=== PATIENT | male | born 1960 | race Caucasian/White ===

== ENCOUNTER 2016-11-27 23:51 | Inpatient (IN) | payer MEDICAID ==
[2016-11-28] MEDS ORDERED: Sodium Chloride 0.9% 1,000 ML IV STA (00:17)
[2016-11-28] MEDS ORDERED: Ondansetron 4 MG/2 ML SDV IVPUSH ONE (00:17)
[2016-11-28] MEDS ORDERED: Sodium Chloride 0.9% 10 ML Syringe FLUSH PRN (00:17)
[2016-11-28] MEDS ORDERED: HYDROmorphone 1 MG/ML Syringe IVPUSH ONE ×2 (00:19→00:59)
--- NOTE | 2016-11-28 01:45 | EDM.PDOC ---
ED HPI GENERAL MEDICAL PROBLEM - General Chief Complaint: Abdominal Pain Stated Complaint: ABDOMINAL PAIN Time Seen by Provider: 11/28/16 00:12 Source of Information: Reports: Patient, Family History Limitations: Reports: No Limitations - History of Present Illness INITIAL COMMENTS - FREE TEXT/NARRATIVE: The patient presents with generalized abdominal pain. He has a history of bladder cancer and neobladder. He also has had an incarcerated hernia with repair. He has nausea but no vomiting or diarrhea. He denies fever, chills, cough, chest pain or shortness of breath. This started yesterday afternoon when he got back from [facility]. He went to bed but could not sleep. He has a history of small bowel obstruction but it did not need surgery. Onset: Gradual Duration: Day(s): (Yesterday afternoon) Location: Reports: Abdomen Quality: Reports: Sharp Severity: Moderate Improves with: Reports: None Worsens with: Reports: None Associated Symptoms: Reports: Nausea/Vomiting. Denies: Chest Pain, Cough, Fever /Chills, Headaches, Shortness of Breath Abdomen Pain Score (Numeric/FACES): 10 - Related Data Allergies Allergy/AdvReac Type Severity Reaction Status Date / Time No Known Allergies Allergy Verified 11/28/16 00:01 Home Meds: Home Meds Aspirin [Ecotrin] 81 mg PO DAILY 11/25/15 [History] Bisoprolol Fumarate [Zebeta] 5 mg PO DAILY 11/25/15 [History] FLUoxetine [PROzac] 20 mg PO DAILY 11/25/15 [History] Gabapentin [Neurontin] 1,200 mg PO BID 11/25/15 [History] Nitroglycerin 1 tab PO ASDIRECTED PRN 11/25/15 [History] Rivaroxaban [Xarelto] 20 mg PO DAILY 11/25/15 [History] oxyCODONE HCl/Acetaminophen [oxyCODONE-Acetaminophen 5-325] 1 tab PO Q4H PRN 04/03 [History] Gabapentin [Neurontin] 300 mg PO DAILY #180 cap 11/26/15 [Rx] oxyCODONE HCl/Acetaminophen [Percocet 5-325 mg Tablet] 1 - 2 each PO Q4H PRN # 40 tablet 11/26/15 [Rx] Past Medical History 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 Cardiovascular History: Reports: High Cholesterol, Hypertension, [place], Other (See Below) Other Cardiovascular History: Stents Other Genitourinary History: ureteral stent placement, bladder removed., and has jason bladder in place Musculoskeletal History: Reports: Fracture Other Musculoskeletal History: Hammer toe fixed Neurological History: Reports: Neuropathy, Peripheral Endocrine/Metabolic History: Reports: Diabetes, Type II Hematologic History: Reports: Blood Transfusion(s) Oncologic (Cancer) History: Reports: Bladder - Past Surgical History HEENT Surgical History: Reports: Myringotomy w Tube(s) Cardiovascular Surgical History: Reports: Carotid Endarterectomy GI Surgical History: Reports: Hernia Repair/Other Male Surgical History: Reports: Prostatectomy Social & Family History - Tobacco Use Smoking Status *Q: Never Smoker Second Hand Smoke Exposure: No - Recreational Drug Use Recreational Drug Use: No ED ROS GENERAL - Review of Systems Review Of Systems: See Below Constitutional: Reports: No Symptoms HEENT: Reports: No Symptoms Respiratory: Reports: No Symptoms Cardiovascular: Reports: No Symptoms Endocrine: Reports: No Symptoms GI/Abdominal: Reports: Abdominal Pain, Nausea. Denies: Diarrhea, Vomiting : Reports: No Symptoms Musculoskeletal: Reports: No Symptoms ED EXAM, GI/ABD - Physical Exam Exam: See Below Exam Limited By: No Limitations General Appearance: Alert, No Apparent Distress Ears: Normal External Exam Nose: Normal Inspection Throat/Mouth: Normal Inspection Head: Atraumatic, Normocephalic Neck: Normal Inspection Respiratory/Chest: No Respiratory Distress, Lungs Clear, Normal Breath Sounds Cardiovascular: Regular Rate, Rhythm, No Edema, No Murmur GI/Abdominal: Soft, Tenderness (mild generalized tenderness. Large ventral scar ) Course - Vital Signs Last Recorded V/S: Last Vital Signs Temp 98.1 F 11/28/16 00:01 Pulse 71 11/28/16 00:01 Resp 17 11/28/16 00:01 BP 206/116 H 11/28/16 00:01 Pulse Ox 95 11/28/16 00:01 - Orders/Labs/Meds Orders: Active Orders 24 hr Category Date Time Status Peripheral IV Care [RC] . DIRECTED Care 11/28/16 00:17 Active Abdomen Pelvis wo Cont [CT] Stat Exams 11/28/16 00:17 Taken Sodium Chloride 0.9% [Normal Saline] 1,000 ml Med 11/28/16 02:00 Active IV ASDIRECTED Sodium Chloride 0.9% [Saline Flush] Med 11/28/16 00:17 Active 10 ml FLUSH ASDIRECTED PRN ED Antiemetic Medication Reflex [OM.PC] Stat Oth 11/28/16 00:18 Ordered Peripheral IV Insertion Adult [OM.PC] Stat Oth 11/28/16 00:17 Ordered Medication Orders Sodium Chloride (Normal Saline) 1,000 mls @ 150 mls/hr IV ASDIRECTED AUSTEN Last Admin: 11/28/16 01:56 Dose: 150 mls/hr Sodium Chloride (Saline Flush) 10 ml FLUSH ASDIRECTED PRN PRN Reason: Keep Vein Open Last Admin: 11/28/16 00:39 Dose: 10 ml Labs: Laboratory Tests 11/28/16 11/28/16 11/28/16 Range/Units 00:29 00:29 00:50 WBC 7.94 (4.23-9.07) K/mm3 RBC 5.30 (4.63-6.08) M/mm3 Hgb 15.2 (13.7-17.5) gm/L Hct 45.7 (40.1-51.0) % MCV 86.2 (79.0-92.2) fl MCH 28.7 (25.7-32.2) pg MCHC 33.3 (32.2-35.5) g/dl RDW Std Deviation 41.6 (35.1-43.9) fL Plt Count 189 (163-337) K/mm3 MPV 9.1 L (9.4-12.3) fl Neut % (Auto) 66.4 (34.0-67.9) % Lymph % (Auto) 24.2 (21.8-53.1) % Iron % (Auto) 7.6 (5.3-12.2) % Eos % (Auto) 1.4 (0.8-7.0) Baso % (Auto) 0.3 (0.1-1.2) % Neut # (Auto) 5.28 (1.78-5.38) K/mm3 Lymph # (Auto) 1.92 (1.32-3.57) K/mm3 Iron # (Auto) 0.60 (0.30-0.82) K/mm3 Eos # (Auto) 0.11 (0.04-0.54) K/mm3 Baso # (Auto) 0.02 (0.01-0.08) K/mm3 Sodium 143 (136-145) mEq/L Potassium 4.4 (3.5-5.1) mEq/L Chloride 105 (98-107) mEq/L Carbon Dioxide 27 (21-32) mEq/L Anion Gap 15.4 H (5-15) BUN 31 H (7-18) mg/dL Creatinine 1.8 H (0.7-1.3) mg/dL Est Cr Clr Drug Dosing 49.70 mL/min Estimated GFR (MDRD) 39 (>60) mL/min BUN/Creatinine Ratio 17.2 (14-18) Glucose 124 H (74-106) mg/dL Calcium 9.4 (8.5-10.1) mg/dL Total Bilirubin 0.5 (0.2-1.0) mg/dL AST 30 (15-37) U/L ALT 69 H (16-63) U/L Alkaline Phosphatase 91 (46-116) U/L Total Protein 7.9 (6.4-8.2) g/dl Albumin 4.0 (3.4-5.0) g/dl Globulin 3.9 gm/dL Albumin/Globulin Ratio 1.0 (1-2) Lipase 155 (73-393) U/L Urine Color Yellow (Yellow) Urine Appearance Cloudy H (Clear) Urine pH 6.0 (5.0-8.0) Ur Specific Stow 1.025 (1.005-1.030) Urine Protein 2+ H (Negative) Urine Glucose (UA) Negative (Negative) Urine Ketones Negative (Negative) Urine Occult Blood 1+ H (Negative) Urine Nitrite Negative (Negative) Urine Bilirubin Negative (Negative) Urine Urobilinogen 0.2 (0.2-1.0) Ur Leukocyte Esterase Negative (Negative) Urine RBC 5-10 H (0-5) /hpf Urine WBC 10-20 H (0-5) /hpf Ur Epithelial Cells Not seen (0-5) /hpf Amorphous Sediment Few H (NOT SEEN) /hpf Urine Bacteria Few (FEW) /hpf Urine Mucus Few (FEW) /hpf Meds: Medications Generic Name Dose Route Start Last Admin Trade Name Freq PRN Reason Stop Dose Admin Sodium Chloride 1,000 mls @ 150 mls/hr 11/28/16 02:00 11/28/16 01:56 Normal Saline IV 150 mls/hr ASDIRECTED AUSTEN Administration Sodium Chloride 10 ml 11/28/16 00:17 11/28/16 00:39 Saline Flush FLUSH 10 ml ASDIRECTED PRN Administration Keep Vein Open Discontinued Medications Generic Name Dose Route Start Last Admin Trade Name Valentinoq PRN Reason Stop Dose Admin Fentanyl 100 mcg 11/28/16 01:50 11/28/16 01:56 Sublimaze IVPUSH 11/28/16 01:51 100 mcg ONETIME ONE Administration Hydromorphone HCl 1 mg 11/28/16 00:19 11/28/16 00:41 Dilaudid IVPUSH 11/28/16 00:20 1 mg ONETIME ONE Administration Hydromorphone HCl 1 mg 11/28/16 00:59 11/28/16 01:04 Dilaudid IVPUSH 11/28/16 01:00 1 mg ONETIME ONE Administration Sodium Chloride 1,000 mls @ 1,000 mls/hr 11/28/16 00:17 11/28/16 00:38 Normal Saline IV 11/28/16 01:16 1,000 mls/hr .BOLUS STA Administration Ondansetron HCl 4 mg 11/28/16 00:17 11/28/16 00:39 Zofran IVPUSH 11/28/16 00:18 4 mg ONETIME ONE Administration - Re-Assessments/Exams Free Text/Narrative Re-Assessment/Exam: 11/28/16 01:44 I ordered an IV NS 1L bolus, zofran 4mg IV, dilaudid 1mg IV, labs, UA, and CT of his abdomen and pelvis. He says he has bad kidneys and he does not want IV contrast and he does not think he can tolerate the oral contrast. 11/28/16 02:54 His CBC is negative. His creatinine is elevated at 1.8. His UA shows no UTI. He had more pain so I gave him dilaudid and some fentanyl. His CT shows chronic moderate right hydroureteronephrosis, stable compared to the prior study with associated right renal cortical thinning. Status post neobladder formation. Findings consistent with small bowel obstruction. He is having pain again. I have ordered some fentanyl 50mcg IV. I feel he needs to be admitted. I called Dr Merchant and she agreed to the admission. Departure - Departure Time of Disposition: 03:05 Disposition: Admitted As Inpatient 65 Condition: fair Clinical Impression: Small bowel obstruction - Discharge Information Forms: ED Department Discharge - My Orders Last 24 Hours: My Active Orders 11/28/16 00:17 Peripheral IV Care [RC] . DIRECTED Abdomen Pelvis wo Cont [CT] Stat Sodium Chloride 0.9% [Saline Flush] 10 ml FLUSH ASDIRECTED PRN Peripheral IV Insertion Adult [OM.PC] Stat 11/28/16 00:18 ED Antiemetic Medication Reflex [OM.PC] Stat 11/28/16 02:00 Sodium Chloride 0.9% [Normal Saline] 1,000 ml IV ASDIRECTED - Assessment/Plan Last 24 Hours: My Active Orders 11/28/16 00:17 Peripheral IV Care [RC] . DIRECTED Abdomen Pelvis wo Cont [CT] Stat Sodium Chloride 0.9% [Saline Flush] 10 ml FLUSH ASDIRECTED PRN Peripheral IV Insertion Adult [OM.PC] Stat 11/28/16 00:18 ED Antiemetic Medication Reflex [OM.PC] Stat 11/28/16 02:00 Sodium Chloride 0.9% [Normal Saline] 1,000 ml IV ASDIRECTED
[2016-11-28] MEDS ORDERED: fentaNYL 100 MCG/2 ML SDV IVPUSH ONE ×2 (01:50→03:01)
[2016-11-28] MEDS ORDERED: Sodium Chloride 0.9% 1,000 ML IV SCH (02:00)
[2016-11-28] MEDS ORDERED: Ondansetron 4 MG/2 ML SDV IVPUSH PRN (04:24)
[2016-11-28] MEDS: fentaNYL 100 MCG/2 ML SDV IVPUSH PRN ×2 (04:42→07:57)
--- NOTE | 2016-11-28 06:56 | PCM.CONS ---
H&P History of Present Illness - General Date of Service: 11/28/16 Admit Problem/Dx: Admission Diagnosis/Problem Admission Diagnosis/Problem Small bowel obstruction Source of Information: Patient History Limitations: Reports: No Limitations - History of Present Illness Initial Comments - Free Text/Narative: 56-year-old, white male was admitted for a small bowel obstruction. About 5 years ago he underwent a radical cystectomy for bladder cancer, and was given a neobladder. This procedure was associated with a ventral hernia with incarceration that was managed by open reduction and mesh repair. About 5 months ago, while in [place], he presented to a hospital there with severe crampy abdominal pain. The discharge diagnosis was partial small bowel obstruction that resolved with medical management. He states this current admission for crampy abdominal pain is similar, but much better than the abdominal discomfort he had several months ago. He has waves of cramps. During a wave the pain intensity can be 10 over 10. This morning during my visit with him he has 0/10 abdominal pain. He has no nausea. He has not had emesis. On the other hand, he has not passed gas or had a bowel movement. Of note, was that he does not have a nasogastric tube in place because the patient refused it. He stated that during his radical cystectomy the post op nasogastric tube was extremely painful. The [place] admission for partial small bowel obstruction was managed without nasogastric tube suction, and he wants to be managed here in a similar fashion. Abdomen Pain Score (Numeric/FACES): 10 - Related Data Allergies/Adverse Reactions: Allergies Allergy/AdvReac Type Severity Reaction Status Date / Time No Known Allergies Allergy Verified 11/28/16 00:01 Home Medications: Home Meds Aspirin [Ecotrin] 81 mg PO ACBREAKFAST 11/25/15 [History] Bisoprolol Fumarate [Zebeta] 5 mg PO ACBREAKFAST 11/25/15 [History] Gabapentin [Neurontin] 1,800 mg PO ACBREAKFAST 11/25/15 [History] Rivaroxaban [Xarelto] 20 mg PO BEDTIME 11/25/15 [History] oxyCODONE HCl/Acetaminophen [oxyCODONE-Acetaminophen 5-325] 1 tab PO Q4H PRN 04/03 [History] Celebrex 11/28/16 [History] Gabapentin [Neurontin] 1,200 mg PO BEDTIME 11/28/16 [History] Glipizide 11/28/16 [History] LORazepam 1 mg PO BID PRN 11/28/16 [History] Past Medical History HEENT History: Reports: Other (See Below) 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, 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 Cardiovascular History: Reports: Afib, Blood Clots/VTE/DVT, CAD, High Cholesterol, Hypertension, [place], Stents, Other (See Below) Other Cardiovascular History: Stents Gastrointestinal History: Reports: Bowel Obstruction, GERD Genitourinary History: Reports: Urinary Incontinence Other Genitourinary History: ureteral stent placement, bladder removed., and has jason bladder in place Musculoskeletal History: Reports: Fracture Other Musculoskeletal History: Hammer toe fixed Neurological History: Reports: Neuropathy, Peripheral Psychiatric History: Reports: Anxiety Endocrine/Metabolic History: Reports: Diabetes, Type II Hematologic History: Reports: Blood Transfusion(s) Oncologic (Cancer) History: Reports: Bladder - Past Surgical History HEENT Surgical History: Reports: Myringotomy w Tube(s) Cardiovascular Surgical History: Reports: Carotid Endarterectomy, Carotid Stents Male Surgical History: Reports: Prostatectomy Endocrine Surgical History: Reports: None Oncologic Surgical History: Reports: None Social & Family History - Tobacco Use Smoking Status *Q: Never Smoker Second Hand Smoke Exposure: No - Recreational Drug Use Recreational Drug Use: No H&P Review of Systems - Review of Systems: Review Of Systems: ROS reveals no pertinent complaints other than HPI. Exam - Exam Exam: See Below - Vital Signs Vital Signs: Last Vital Signs Temp 36.7 C 11/28/16 00:01 Pulse 71 11/28/16 00:01 Resp 17 11/28/16 00:01 BP 206/116 H 11/28/16 00:01 Pulse Ox 95 11/28/16 00:01 Weight: 117.934 kg - Exam General: Alert, Oriented, Cooperative HEENT: EOMI, Hearing Intact Neck: Supple, Trachea Midline Lungs: Clear to Auscultation, Normal Respiratory Effort Cardiovascular: Regular Rate, Regular Rhythm, Normal S1, Normal S2 Abdomen: Normal Bowel Sounds, Soft, Distention (mild, no recurrent hernia) (Male) Exam: Deferred Rectal (Males) Exam: Deferred Back Exam: Normal Inspection Skin: Warm, Dry, Intact Psychiatric: Alert, Normal Affect, Normal Mood - Patient Data Result Diagrams: 11/28/16 00:29 11/28/16 00:29 Consult PN Assessment/Plan Procedures: Procedures ASSAY OF AMYLASE (01/23/15) BLOOD CULTURE FOR BACTERIA (01/23/15) COMPLETE CBC W/AUTO DIFF WBC (11/25/15) COMPREHEN METABOLIC PANEL (11/25/15) CT ABD & PELV W/CONTRAST (01/23/15) CT ABD & PELVIS W/O CONTRAST (11/25/15) EMERGENCY DEPT VISIT (11/25/15) HYDRATE IV INFUSION ADD-ON (11/25/15) ROUTINE VENIPUNCTURE (11/25/15) THER/PROPH/DIAG INJ IV PUSH (11/25/15) THER/PROPH/DIAG IV INF ADDON (01/23/15) THER/PROPH/DIAG IV INF INIT (01/23/15) TX/PRO/DX INJ NEW DRUG ADDON (01/23/15) TX/PRO/DX INJ SAME DRUG CAFE MANAGER (11/25/15) URINALYSIS AUTO W/O SCOPE (12/25/14) URINALYSIS AUTO W/SCOPE (11/25/15) URINE CULTURE/COLONY COUNT (01/23/15) (1) Small bowel obstruction SNOMED Code(s): 153186345 Code(s): K56.69 - OTHER INTESTINAL OBSTRUCTION Priority: Medium Current Visit: Yes Problem List Initiated/Reviewed/Updated: Yes Plan: Imp: Clinically this is a partial small bowel obstruction. Etiology is most likely due to adhesions, but an internal hernia given his previous neobladder surgery which would require mobilization of the small bowel mesentery, as well as the possibility of recurrent bladder cancer are possible too. CT scan shows some dilated loops of small bowel with air-fluid levels, as well as stool and gas in the right colon, and rectum. The neobladder is seen as well. This patient is afebrile. His white blood cell count is normal. He has a nonfocal abdominal exam. I suspect that this partial obstruction will resolve with conservative medical management. Ideally, a nasogastric tube would be in place but because of patient refusal his care will be compromised. Nevertheless, I suspect she will have a similar course as he had in [place]. For severe refractory nausea and emesis he may come to agree to tube decompression. Rec: NPO with IV hydration. Antibiotics are not indicated at this time. Ambulation. We will wait for return of bowel function. I will see him tomorrow.
[2016-11-28] MEDS ORDERED: HYDROmorphone 1 MG/ML Syringe IVPUSH PRN (08:14)
[2016-11-28] MEDS: Sodium Chloride 0.9% 1,000 ML IV SCH ×3 (08:30→19:30)
--- NOTE | 2016-11-28 08:51 | PCM.HP ---
H&P History of Present Illness - General Date of Service: 11/28/16 Admit Problem/Dx: Admission Diagnosis/Problem Admission Diagnosis/Problem Small bowel obstruction Source of Information: Patient, Family, Provider - History of Present Illness Initial Comments - Free Text/Narative: 56 year old male with history of bladder cancer, s/p neobladder after a radiacl cystectomy presents with abdominal pain. He has a partial SBO, he has had a similar presentation several years ago. He unfortunately had a difficult experience with an NGT and on admission refused it. However, he has agreed to have an NGT placed after a discussion of the benefit for his condition. Associated symptoms include nausea and vomiting. Onset of Symptoms: Reports: Gradual Duration of Symptoms: Reports: Hour(s): Location: Reports: Abdomen Quality: Reports: Sharp, Other (crampy) Severity: Severe Improves with: Reports: Medication Associated Symptoms: Reports: Nausea/Vomiting Abdomen Pain Score (Numeric/FACES): 10 - Related Data Allergies/Adverse Reactions: Allergies Allergy/AdvReac Type Severity Reaction Status Date / Time No Known Allergies Allergy Verified 11/28/16 00:01 Home Medications: Home Meds Bisoprolol Fumarate [Zebeta] 5 mg PO ACBREAKFAST 11/25/15 [History] Rivaroxaban [Xarelto] 20 mg PO BEDTIME 11/25/15 [History] oxyCODONE HCl/Acetaminophen [oxyCODONE-Acetaminophen 5-325] 1 tab PO Q4H PRN 04/03 [History] DULoxetine HCl [Cymbalta] 30 mg PO BEDTIME 11/28/16 [History] Gabapentin [Neurontin] 600 mg PO TID 11/28/16 [History] LORazepam 1 mg PO BID PRN 11/28/16 [History] glipiZIDE [Glipizide ER] 5 mg PO DAILY 11/28/16 [History] Past Medical History HEENT History: Reports: Other (See Below) 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, 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 Cardiovascular History: Reports: Afib, Blood Clots/VTE/DVT, CAD, High Cholesterol, Hypertension, [place], Stents, Other (See Below) Other Cardiovascular History: Stents Gastrointestinal History: Reports: Bowel Obstruction, GERD Genitourinary History: Reports: Urinary Incontinence Other Genitourinary History: ureteral stent placement, bladder removed., and has jason bladder in place Musculoskeletal History: Reports: Fracture Other Musculoskeletal History: Hammer toe fixed Neurological History: Reports: Neuropathy, Peripheral Psychiatric History: Reports: Anxiety Endocrine/Metabolic History: Reports: Diabetes, Type II Hematologic History: Reports: Blood Transfusion(s) Oncologic (Cancer) History: Reports: Bladder - Past Surgical History HEENT Surgical History: Reports: Myringotomy w Tube(s) Cardiovascular Surgical History: Reports: Carotid Endarterectomy, Carotid Stents Male Surgical History: Reports: Prostatectomy Endocrine Surgical History: Reports: None Oncologic Surgical History: Reports: None Social & Family History - Tobacco Use Smoking Status *Q: Never Smoker Used Tobacco, but Quit: Yes Month Tobacco Last Used: 2012 Second Hand Smoke Exposure: No - Caffeine Use Caffeine Use: Reports: Coffee - Recreational Drug Use Recreational Drug Use: No H&P Review of Systems - Review of Systems: Review Of Systems: See Below General: Reports: Decreased Appetite HEENT: Reports: No Symptoms Pulmonary: Reports: No Symptoms Cardiovascular: Reports: No Symptoms Gastrointestinal: Reports: Abdominal Pain, Nausea, Vomiting Genitourinary: Reports: No Symptoms Musculoskeletal: Reports: No Symptoms Skin: Reports: No Symptoms Psychiatric: Reports: No Symptoms Neurological: Reports: No Symptoms Hematologic/Lymphatic: Reports: No Symptoms Immunologic: Reports: No Symptoms Exam - Exam Exam: See Below - Vital Signs Vital Signs: Last Vital Signs Temp 36.8 C 11/28/16 05:00 Pulse 55 L 11/28/16 05:00 Resp 12 11/28/16 05:00 BP 162/74 H 11/28/16 05:00 Pulse Ox 98 11/28/16 05:00 Weight: 117.934 kg - Exam HEENT: EOMI, Nares Patent, Normal Nasal Septum, Pupils Equal, Pupils Reactive Neck: Supple, Trachea Midline Lungs: Normal Respiratory Effort Cardiovascular: Regular Rate, Tachycardia Abdomen: Normal Bowel Sounds (Male) Exam: Deferred Rectal (Males) Exam: Deferred Back Exam: Normal Inspection Extremities: Normal Pulses Skin: Warm Neurological: Cranial Nerves Intact, Normal Speech Neuro Extensive - Mental Status: Alert, Oriented x3 Neuro Extensive - Motor, Sensory, Reflexes: CN II-XII Intact Psychiatric: Alert, Anxious - Patient Data Result Diagrams: 11/28/16 00:29 11/28/16 00:29 *Q Meaningful Use (ADM) - VTE *Q VTE Criteria *Q: - Stroke *Q Stroke Criteria *Q: - AMI *Q AMI Criteria *Q: - Problem List (1) Small bowel obstruction SNOMED Code(s): 289321823 ICD Code: K56.69 - OTHER INTESTINAL OBSTRUCTION Status: Acute Priority: Medium Current Visit: Yes (2) Neurogenic pain SNOMED Code(s): 953723662 ICD Code: M79.2 - NEURALGIA AND NEURITIS, UNSPECIFIED Status: Acute Current Visit: No Problem List Initiated/Reviewed/Updated: Yes Orders Last 24hrs: Active Orders 24 hr Category Date Time Status Activity as Tolerated [RC] QSHIFT Care 11/28/16 04:23 Active Consult to Physician [CONS] Urgent Cons 11/28/16 03:08 Active NPO Now [Nothing per Oral Now Diet] [DIET] Diet 11/28/16 Breakfast Active HYDROmorphone [Dilaudid] Med 11/28/16 08:14 Active 1 mg IVPUSH Q1H PRN Ondansetron [Zofran] Med 11/28/16 04:24 Active 4 mg IVPUSH Q6H PRN Sodium Chloride 0.9% [Normal Saline] 1,000 ml Med 11/28/16 04:30 Active IV ASDIRECTED fentaNYL [Sublimaze] Med 11/28/16 04:25 Active 50 mcg IVPUSH Q1H PRN Code Status [Resuscitation Status] Routine Resus Stat 11/28/16 04:22 Ordered Medication Orders Fentanyl (Sublimaze) 50 mcg IVPUSH Q1H PRN PRN Reason: Pain Last Admin: 11/28/16 07:57 Dose: 50 mcg Admin: 11/28/16 04:42 Dose: 50 mcg Hydromorphone HCl (Dilaudid) 1 mg IVPUSH Q1H PRN PRN Reason: Abdominal Pain Last Admin: 11/28/16 08:45 Dose: 1 mg Sodium Chloride (Normal Saline) 1,000 mls @ 150 mls/hr IV ASDIRECTED AUSTEN Last Admin: 11/28/16 08:30 Dose: 150 mls/hr Ondansetron HCl (Zofran) 4 mg IVPUSH Q6H PRN PRN Reason: Nausea/Vomiting Sodium Chloride (Saline Flush) 10 ml FLUSH ASDIRECTED PRN PRN Reason: Keep Vein Open Last Admin: 05/13/17 00:39 Dose: 10 ml Assessment/Plan Comment:: Impression: SBO, refused NGT, but will allow placement now Previous partial SBO without surgery. History of extensive abdominal surgeries History of bladder cancer S/P neobladder; ureteral stent Chronic Diabetes mellitus PVD with CEA/LYNDA CAD/SC HTN Hyperlipidemia Plan: Gen surg input is appreciated NGT at 60 with low intermittent suction Pain mgt Hold Xarelto, may need surgery, start lovenox 120 mg BID Oxygen, keep O2 sat > 92%/CXR Home meds via NGT Scheduled IV meds Pre-medicate before NGT DVT/GI prophylaxis
[2016-11-28] MEDS ORDERED: fentaNYL 100 MCG/2 ML SDV IVPUSH PRN (09:54)
[2016-11-28] MEDS ORDERED: 50% Dextrose in Water 50 ML Syringe IVPUSH PRN (09:59)
[2016-11-28] MEDS: Haloperidol Lactate 5 MG/ML SDV IVPUSH SCH ×2 (10:30→15:08)
[2016-11-28] MEDS ORDERED: Benzocaine 20% Oral Spray 59.2 ML Canister MUCMEM ONE (11:33)
[2016-11-28] MEDS ORDERED: Lidocaine 2% Viscous Solution 15 ML Cup PO ONE (11:35)
[2016-11-28] MEDS: HYDROmorphone 1 MG/ML Syringe IVPUSH PRN ×3 (12:04→19:32)
--- NOTE | 2016-11-28 12:48 | CR ---
Chest: Frontal view of the chest was obtained as well as an additional AP view centered to the diaphragmatic region. Comparison: No previous chest x-ray is available. Findings: Nasogastric tube is seen. Tip lies below the gastroesophageal junction within the proximal stomach. Heart size has a slight left ventricular configuration. Lungs appear to be clear. Bony structures are grossly intact. Impression: 1. Position of nasogastric tube as described above. 2. Other incidental findings. Diagnostic code #2
[2016-11-28] MEDS: Insulin Aspart 100 Units/ML 3 ML Pen SUBCUT SCH ×2 (12:57→17:47)
[2016-11-28] MEDS: Pantoprazole 40 MG Vial IVPUSH SCH (15:41)
[2016-11-28] MEDS: DULoxetine 30 MG Cap PO SCH (23:00)
[2016-11-28] MEDS: Gabapentin 600 MG Tab PO SCH (23:00)
[2016-11-29] MEDS: Sodium Chloride 0.9% 1,000 ML IV SCH ×4 (00:24→15:24)
[2016-11-29] MEDS: HYDROmorphone 1 MG/ML Syringe IVPUSH PRN ×6 (00:25→23:45)
[2016-11-29] MEDS: Insulin Aspart 100 Units/ML 3 ML Pen SUBCUT SCH ×5 (02:01→21:44)
[2016-11-29] MEDS: Pantoprazole 40 MG Vial IVPUSH SCH ×3 (03:42→14:22)
--- NOTE | 2016-11-29 07:55 | PCM.CONSN ---
- General Info Date of Service: 11/29/16 Functional Status: Reports: pain controlled, urinating - Review of Systems Gastrointestinal: Reports: No symptoms, Flatus Neurological: Reports: Paresthesia (Feet) - Patient Data Vitals - most recent: Last Vital Signs Temp 36.6 C 11/28/16 21:00 Pulse 62 11/28/16 21:00 Resp 12 11/28/16 21:00 BP 142/78 H 11/28/16 21:00 Pulse Ox 98 11/28/16 21:00 Weight - most recent: 117.934 kg I&O - last 24 hours: Intake & Output 11/28/16 11/29/16 11/29/16 22:59 06:59 14:59 Intake Total 1936 Output Total 500 150 Balance 1436 -150 Lab Results last 24 hrs: Laboratory Results - last 24 hr 11/28/16 11/28/16 11/29/16 Range/Units 12:35 16:58 00:37 POC Glucose 102 96 118 H (70-105) mg/dL 11/29/16 Range/Units 06:02 POC Glucose 95 (70-105) mg/dL Med Orders - Current: Current Medications Dextrose/Water (Dextrose 50% In Water) 50 ml IVPUSH ASDIRECTED PRN PRN Reason: Hypoglycemia Diazepam (Valium) 2 mg IVPUSH Q8H PRN PRN Reason: Anxiety Duloxetine HCl (Cymbalta) 30 mg PO BEDTIME [facility] Last Admin: 11/28/16 23:00 Dose: Not Given Enoxaparin Sodium (Lovenox) 120 mg SUBCUT Q12HR [facility] Fentanyl (Sublimaze) 50 mcg IVPUSH Q2HR PRN PRN Reason: Pain Gabapentin (Neurontin) 600 mg PO TID [facility] Last Admin: 11/28/16 23:00 Dose: Not Given Hydromorphone HCl (Dilaudid) 2 mg IVPUSH Q1H PRN PRN Reason: Abdominal Pain Last Admin: 11/29/16 05:12 Dose: 2 mg Sodium Chloride (Normal Saline) 1,000 mls @ 200 mls/hr IV ASDIRECTED [facility] Last Admin: 11/29/16 05:13 Dose: 200 mls/hr Insulin Aspart (Novolog) 0 unit SUBCUT QIDACANDBED [facility] PRN Reason: Protocol Last Admin: 11/29/16 06:51 Dose: Not Given Ondansetron HCl (Zofran) 4 mg IVPUSH Q6H PRN PRN Reason: Nausea/Vomiting Oxycodone/Acetaminophen (Percocet 325-5 Mg) 1 tab PO Q4H PRN PRN Reason: Pain Pantoprazole Sodium (Protonix Iv) 40 mg IVPUSH Q12H [facility] Last Admin: 11/29/16 03:42 Dose: 40 mg Sodium Chloride (Saline Flush) 10 ml FLUSH ASDIRECTED PRN PRN Reason: Keep Vein Open Last Admin: 11/28/16 00:39 Dose: 10 ml Discontinued Medications Benzocaine (Hurricaine 20% [place]) 1 ml MUCMEM ONETIME ONE Stop: 11/28/16 11:34 Last Admin: 11/28/16 12:00 Dose: 1 dose Diazepam (Valium) 2 mg IVPUSH ONETIME ONE Stop: 11/28/16 09:57 Last Admin: 11/28/16 10:29 Dose: 2 mg Fentanyl (Sublimaze) 100 mcg IVPUSH ONETIME ONE Stop: 11/28/16 01:51 Last Admin: 11/28/16 01:56 Dose: 100 mcg Fentanyl (Sublimaze) 50 mcg IVPUSH ONETIME ONE Stop: 11/28/16 03:02 Last Admin: 11/28/16 03:11 Dose: 50 mcg Fentanyl (Sublimaze) 50 mcg IVPUSH Q1H PRN PRN Reason: Pain Last Admin: 11/28/16 07:57 Dose: 50 mcg Haloperidol Lactate (Haldol) 1 mg IVPUSH Q6H [facility] Last Admin: 11/28/16 15:08 Dose: Not Given Hydromorphone HCl (Dilaudid) 1 mg IVPUSH ONETIME ONE Stop: 11/28/16 00:20 Last Admin: 11/28/16 00:41 Dose: 1 mg Hydromorphone HCl (Dilaudid) 1 mg IVPUSH ONETIME ONE Stop: 11/28/16 01:00 Last Admin: 11/28/16 01:04 Dose: 1 mg Hydromorphone HCl (Dilaudid) 1 mg IVPUSH Q1H PRN PRN Reason: Abdominal Pain Last Admin: 11/28/16 08:45 Dose: 1 mg Sodium Chloride (Normal Saline) 1,000 mls @ 1,000 mls/hr IV .BOLUS STA Stop: 11/28/16 01:16 Last Admin: 11/28/16 00:38 Dose: 1,000 mls/hr Sodium Chloride (Normal Saline) 1,000 mls @ 150 mls/hr IV ASDIRECTED [facility] Last Admin: 11/28/16 01:56 Dose: 150 mls/hr Lidocaine HCl (Xylocaine 2% Viscous) 15 ml PO ONETIME ONE Stop: 11/28/16 11:36 Last Admin: 11/28/16 12:00 Dose: 15 ml Ondansetron HCl (Zofran) 4 mg IVPUSH ONETIME ONE Stop: 11/28/16 00:18 Last Admin: 11/28/16 00:39 Dose: 4 mg - Exam General: alert, oriented Abdomen: soft, no tenderness, no distension Consult PN Assessment/Plan Procedures: Procedures ASSAY OF AMYLASE (01/23/15) BLOOD CULTURE FOR BACTERIA (01/23/15) COMPLETE CBC W/AUTO DIFF WBC (11/25/15) COMPREHEN METABOLIC PANEL (11/25/15) CT ABD & PELV W/CONTRAST (01/23/15) CT ABD & PELVIS W/O CONTRAST (11/25/15) EMERGENCY DEPT VISIT (11/25/15) HYDRATE IV INFUSION ADD-ON (11/25/15) ROUTINE VENIPUNCTURE (11/25/15) THER/PROPH/DIAG INJ IV PUSH (11/25/15) THER/PROPH/DIAG IV INF ADDON (01/23/15) THER/PROPH/DIAG IV INF INIT (01/23/15) TX/PRO/DX INJ NEW DRUG ADDON (01/23/15) TX/PRO/DX INJ SAME DRUG PAINTER INTERIOR FINISH (11/25/15) URINALYSIS AUTO W/O SCOPE (12/25/14) URINALYSIS AUTO W/SCOPE (11/25/15) URINE CULTURE/COLONY COUNT (01/23/15) (1) Small bowel obstruction SNOMED Code(s): 820324744 Code(s): K56.69 - OTHER INTESTINAL OBSTRUCTION Priority: Medium Current Visit: Yes Problem List Initiated/Reviewed/Updated: Yes Plan: Imp: Resolving partial small bowel obstruction. This patient has passed gas since yesterday. He has no abdominal pain. This morning. His physical exam shows no abdominal tenderness. A nasogastric tube was successfully placed and has put out approximately 500 cc. He has improved and I suggest we try weaning from the nasogastric tube, with clamping and residual checks for 24 hours. Plan: Clamping NG tube for 24 hours.
[2016-11-29] MEDS: Enoxaparin 120 MG/0.8 ML Syringe SUBCUT SCH ×2 (09:01→20:23)
[2016-11-29] MEDS: Gabapentin 600 MG Tab PO SCH ×4 (09:03→20:23)
--- NOTE | 2016-11-29 10:35 | CT ---
CT abdomen and pelvis Technique: Multiple axial sections were obtained from above the dome of the diaphragm inferiorly through the pubic symphysis. Intravenous and oral contrast not utilized. Study has been performed as a ureteral stone protocol. Previous study: CT abdomen and pelvis exam of 11/26/15. Findings: Small scar noted within the left lung base. Diffuse fatty infiltration seen within the liver. This is an interval change from previous study. Spleen appears within normal limits. Adrenal glands show no nodule. Pancreas is within normal limits. Noncontrast appearance of the gallbladder shows no calcified gallstones. Right sided hydronephrosis is seen with cortical thinning seen within the right kidney. Dilated right ureter into the pelvis is seen. Distal ureter not visualized. Hydronephrosis likely representing ureteral stricture. This finding is stable from prior exam. Left kidney shows no hydronephrosis or ureteral dilatation. Abnormal appearing bladder is seen and felt to represent previous surgery creating a neobladder. Dilated proximal small bowel loops are seen. There is a small abdominal wall hernia seen which is felt to be the etiology for the mild dilated proximal small bowel loops. Small amount of fluid is seen next to this hernia. Diffuse anterior abdominal galicia scarring is seen from previous abdominal wall surgery. Aorta shows atherosclerotic change which continues in the iliac vessels. No retroperitoneal adenopathy or mesenteric abnormalities are seen. No pelvic mass or adenopathy is seen. Diffuse degenerative change is seen within the spine. Impression: 1. Proximal small bowel obstruction caused by a small abdominal wall hernia. 2. Right-sided hydronephrosis and dilated ureter felt compatible with distal right ureteral stricture. This causes cortical thinning of the right kidney. These findings are stable from prior CT exam. 3. Other incidental findings as described above. Diagnostic code #3 I agree with preliminary report issued by [employer] (preliminary report dictated on 11/28/16, 3:43 AM Central Time
--- NOTE | 2016-11-29 11:02 | PCM.PN ---
- General Info Date of Service: 11/29/16 Functional Status: Reports: pain controlled, ambulating, urinating - Review of Systems General: Reports: No Symptoms HEENT: Reports: sore throat Pulmonary: Reports: no symptoms Cardiovascular: Reports: No Symptoms Gastrointestinal: Reports: Abdominal pain (decreased), Flatus Genitourinary: Reports: no symptoms Musculoskeletal: Reports: no symptoms Skin: Reports: no symptoms Neurological: Reports: Numbness (feet) Psychiatric: Reports: no symptoms - Patient Data Vitals - most recent: Last Vital Signs Temp 36.8 C 11/29/16 08:22 Pulse 77 11/29/16 08:22 Resp 12 11/29/16 08:22 BP 165/85 H 11/29/16 08:22 Pulse Ox 84 L 11/29/16 09:55 Weight - most recent: 117.934 kg I&O - last 24 hours: Intake & Output 11/28/16 11/29/16 11/29/16 22:59 06:59 14:59 Intake Total 1936 2305 Output Total 500 2400 Balance 1436 -95 Lab Results last 24 hrs: Laboratory Results - last 24 hr 11/28/16 11/28/16 11/29/16 Range/Units 12:35 16:58 00:37 POC Glucose 102 96 118 H (70-105) mg/dL 11/29/16 11/29/16 Range/Units 06:02 10:30 POC Glucose 95 94 (70-105) mg/dL Med Orders - Current: Current Medications Dextrose/Water (Dextrose 50% In Water) 50 ml IVPUSH ASDIRECTED PRN PRN Reason: Hypoglycemia Diazepam (Valium) 2 mg IVPUSH Q8H PRN PRN Reason: Anxiety Duloxetine HCl (Cymbalta) 30 mg PO BEDTIME [facility] Last Admin: 11/28/16 23:00 Dose: Not Given Enoxaparin Sodium (Lovenox) 120 mg SUBCUT Q12HR [facility] Last Admin: 11/29/16 09:01 Dose: 120 mg Fentanyl (Sublimaze) 50 mcg IVPUSH Q2HR PRN PRN Reason: Pain Gabapentin (Neurontin) 600 mg PO TID [facility] Last Admin: 11/29/16 09:03 Dose: Not Given Hydromorphone HCl (Dilaudid) 2 mg IVPUSH Q1H PRN PRN Reason: Abdominal Pain Last Admin: 11/29/16 09:01 Dose: 2 mg Sodium Chloride (Normal Saline) 1,000 mls @ 200 mls/hr IV ASDIRECTED [facility] Last Admin: 11/29/16 10:28 Dose: 200 mls/hr Insulin Aspart (Novolog) 0 unit SUBCUT QIDACANDBED [facility] PRN Reason: Protocol Last Admin: 11/29/16 10:57 Dose: Not Given Ondansetron HCl (Zofran) 4 mg IVPUSH Q6H PRN PRN Reason: Nausea/Vomiting Oxycodone/Acetaminophen (Percocet 325-5 Mg) 1 tab PO Q4H PRN PRN Reason: Pain Pantoprazole Sodium (Protonix Iv) 40 mg IVPUSH Q12H [facility] Last Admin: 11/29/16 03:42 Dose: 40 mg Sodium Chloride (Saline Flush) 10 ml FLUSH ASDIRECTED PRN PRN Reason: Keep Vein Open Last Admin: 11/28/16 00:39 Dose: 10 ml Discontinued Medications Benzocaine (Hurricaine 20% [place]) 1 ml MUCMEM ONETIME ONE Stop: 11/28/16 11:34 Last Admin: 11/28/16 12:00 Dose: 1 dose Diazepam (Valium) 2 mg IVPUSH ONETIME ONE Stop: 11/28/16 09:57 Last Admin: 11/28/16 10:29 Dose: 2 mg Fentanyl (Sublimaze) 100 mcg IVPUSH ONETIME ONE Stop: 11/28/16 01:51 Last Admin: 11/28/16 01:56 Dose: 100 mcg Fentanyl (Sublimaze) 50 mcg IVPUSH ONETIME ONE Stop: 11/28/16 03:02 Last Admin: 11/28/16 03:11 Dose: 50 mcg Fentanyl (Sublimaze) 50 mcg IVPUSH Q1H PRN PRN Reason: Pain Last Admin: 11/28/16 07:57 Dose: 50 mcg Haloperidol Lactate (Haldol) 1 mg IVPUSH Q6H [facility] Last Admin: 11/28/16 15:08 Dose: Not Given Hydromorphone HCl (Dilaudid) 1 mg IVPUSH ONETIME ONE Stop: 11/28/16 00:20 Last Admin: 11/28/16 00:41 Dose: 1 mg Hydromorphone HCl (Dilaudid) 1 mg IVPUSH ONETIME ONE Stop: 11/28/16 01:00 Last Admin: 11/28/16 01:04 Dose: 1 mg Hydromorphone HCl (Dilaudid) 1 mg IVPUSH Q1H PRN PRN Reason: Abdominal Pain Last Admin: 11/28/16 08:45 Dose: 1 mg Sodium Chloride (Normal Saline) 1,000 mls @ 1,000 mls/hr IV .BOLUS STA Stop: 11/28/16 01:16 Last Admin: 11/28/16 00:38 Dose: 1,000 mls/hr Sodium Chloride (Normal Saline) 1,000 mls @ 150 mls/hr IV ASDIRECTED [facility] Last Admin: 11/28/16 01:56 Dose: 150 mls/hr Lidocaine HCl (Xylocaine 2% Viscous) 15 ml PO ONETIME ONE Stop: 11/28/16 11:36 Last Admin: 11/28/16 12:00 Dose: 15 ml Ondansetron HCl (Zofran) 4 mg IVPUSH ONETIME ONE Stop: 11/28/16 00:18 Last Admin: 11/28/16 00:39 Dose: 4 mg - Exam Quality Assessment: DVT prophylaxis General: alert, oriented, cooperative, no acute distress HEENT: Pupils equal, Pupils reactive, EOMI Neck: supple, trachea midline, no JVD Lungs: Clear to auscultation Cardiovascular: Regular Rate, Regular Rhythm Abdomen: bowel sounds present, soft, no tenderness, no distension (Male) Exam: Deferred Back Exam: Normal Inspection Extremities: normal pulses Skin: warm Neurological: normal gait, normal speech Psy/Mental Status: alert - Problem List & Annotations (1) Small bowel obstruction SNOMED Code(s): 148072056 Code(s): K56.69 - OTHER INTESTINAL OBSTRUCTION Status: Acute Priority: Medium Current Visit: Yes (2) Neurogenic pain SNOMED Code(s): 329694013 Code(s): M79.2 - NEURALGIA AND NEURITIS, UNSPECIFIED Status: Acute Current Visit: No - Problem List Review Problem List Initiated/Reviewed/Updated: Yes - My Orders Last 24 Hours: My Active Orders 11/28/16 10:08 Consult to Physician [CONS] Routine 11/28/16 10:11 Notify Provider Consults [RC] ASDIRECTED 11/28/16 11:00 Insulin Aspart [NovoLOG] See Protocol SUBCUT QIDACANDBED 11/28/16 11:44 Oxygen Therapy Adult [Oxygen Therapy] [RC] ASDIRECTED 11/28/16 13:38 Gastrointestinal Tube Mgmt [RC] 04,10,16,22 Nasogastric Orogastric Tube Insertion [OM.PC] Routine 11/28/16 14:34 Diazepam [Valium] 2 mg IVPUSH Q8H PRN 11/28/16 15:00 Pantoprazole [ProTONIX IV] 40 mg IVPUSH Q12H 11/28/16 15:37 Acetaminophen/oxyCODONE [Percocet 325-5 MG] 1 tab PO Q4H PRN 11/28/16 21:00 DULoxetine [Cymbalta] 30 mg PO BEDTIME Gabapentin [Neurontin] 600 mg PO TID 11/29/16 09:00 Enoxaparin [Lovenox] 120 mg SUBCUT Q12HR 11/30/16 07:00 CBC W/O DIFF,HEMOGRAM [HEME] MOTH@0700 12/03/16 07:00 CBC W/O DIFF,HEMOGRAM [HEME] MOTH@0700 12/07/16 07:00 CBC W/O DIFF,HEMOGRAM [HEME] MOTH@0700 12/10/16 07:00 CBC W/O DIFF,HEMOGRAM [HEME] MOTH@0700 12/14/16 07:00 CBC W/O DIFF,HEMOGRAM [HEME] MOTH@0700 12/17/16 07:00 CBC W/O DIFF,HEMOGRAM [HEME] MOTH@0700 - Plan Plan:: Impression: SBO, decreased out put, NGT clamped today Will give oral meds via BGT Previous partial SBO without surgery. History of extensive abdominal surgeries History of bladder cancer S/P neobladder; ureteral stent Chronic Diabetes mellitus PVD with CEA/LYNDA CAD/MD HTN Hyperlipidemia Plan: Gen surg input is appreciated NGT clamped today. Pain mgt Hold Xarelto, may need surgery, start lovenox 120 mg BID Oxygen, keep O2 sat > 92%/CXR Home meds via NGT Scheduled IV meds DVT/GI prophylaxis
[2016-11-29] MEDS: Acetaminophen/oxyCODONE 325-5 MG Tab PO PRN (18:09)
[2016-11-29] MEDS: Dextrose 5%-0.9% NaCl 1,000 ML IV SCH (20:05)
[2016-11-29] MEDS: DULoxetine 30 MG Cap PO SCH (20:23)
[2016-11-30] MEDS: HYDROmorphone 1 MG/ML Syringe IVPUSH PRN (04:09)
[2016-11-30] MEDS: Pantoprazole 40 MG Vial IVPUSH SCH (04:23)
--- NOTE | 2016-11-30 07:50 | PCM.CONSN ---
- General Info Date of Service: 11/30/16 Functional Status: Reports: pain controlled, ambulating, urinating - Review of Systems Gastrointestinal: Reports: Flatus - Patient Data Vitals - most recent: Last Vital Signs Temp 36.7 C 11/29/16 19:59 Pulse 70 11/29/16 19:59 Resp 15 11/29/16 19:59 BP 148/78 H 11/29/16 20:42 Pulse Ox 99 11/29/16 19:59 Weight - most recent: 119.612 kg I&O - last 24 hours: Intake & Output 11/29/16 11/30/16 11/30/16 22:59 06:59 14:59 Intake Total 2436 Output Total 1775 Balance 661 Lab Results last 24 hrs: Laboratory Results - last 24 hr 11/29/16 11/29/16 11/29/16 Range/Units 10:30 16:27 20:58 WBC (4.23-9.07) K/mm3 RBC (4.63-6.08) M/mm3 Hgb (13.7-17.5) gm/L Hct (40.1-51.0) % MCV (79.0-92.2) fl MCH (25.7-32.2) pg MCHC (32.2-35.5) g/dl RDW Std Deviation (35.1-43.9) fL Plt Count (163-337) K/mm3 MPV (9.4-12.3) fl POC Glucose 94 84 89 (70-105) mg/dL 11/30/16 Range/Units 06:50 WBC 5.84 (4.23-9.07) K/mm3 RBC 4.54 L (4.63-6.08) M/mm3 Hgb 13.0 L (13.7-17.5) gm/L Hct 40.7 (40.1-51.0) % MCV 89.6 (79.0-92.2) fl MCH 28.6 (25.7-32.2) pg MCHC 31.9 L (32.2-35.5) g/dl RDW Std Deviation 42.4 (35.1-43.9) fL Plt Count 144 L (163-337) K/mm3 MPV 9.1 L (9.4-12.3) fl POC Glucose (70-105) mg/dL Med Orders - Current: Current Medications Dextrose/Water (Dextrose 50% In Water) 50 ml IVPUSH ASDIRECTED PRN PRN Reason: Hypoglycemia Diazepam (Valium) 2 mg IVPUSH Q8H PRN PRN Reason: Anxiety Last Admin: 11/29/16 14:45 Dose: 2 mg Duloxetine HCl (Cymbalta) 30 mg PO BEDTIME [facility] Last Admin: 11/29/16 20:23 Dose: 30 mg Enoxaparin Sodium (Lovenox) 120 mg SUBCUT Q12HR [facility] Last Admin: 11/29/16 20:23 Dose: 120 mg Fentanyl (Sublimaze) 50 mcg IVPUSH Q2HR PRN PRN Reason: Pain Gabapentin (Neurontin) 600 mg PO TID [facility] Last Admin: 11/29/16 20:23 Dose: 600 mg Hydromorphone HCl (Dilaudid) 2 mg IVPUSH Q1H PRN PRN Reason: Abdominal Pain Last Admin: 11/30/16 04:09 Dose: 2 mg Dextrose/Sodium Chloride (Dextrose 5%-Normal Saline) 1,000 mls @ 70 mls/hr IV ASDIRECTED [facility] Last Admin: 11/29/16 20:05 Dose: 70 mls/hr Insulin Aspart (Novolog) 0 unit SUBCUT QIDACANDBED [facility] PRN Reason: Protocol Last Admin: 11/29/16 21:44 Dose: Not Given Ondansetron HCl (Zofran) 4 mg IVPUSH Q6H PRN PRN Reason: Nausea/Vomiting Oxycodone/Acetaminophen (Percocet 325-5 Mg) 1 tab PO Q4H PRN PRN Reason: Pain Last Admin: 11/29/16 18:09 Dose: 1 tab Pantoprazole Sodium (Protonix Iv) 40 mg IVPUSH Q12H [facility] Last Admin: 11/30/16 04:23 Dose: 40 mg Sodium Chloride (Saline Flush) 10 ml FLUSH ASDIRECTED PRN PRN Reason: Keep Vein Open Last Admin: 11/28/16 00:39 Dose: 10 ml Discontinued Medications Benzocaine (Hurricaine 20% [place]) 1 ml MUCMEM ONETIME ONE Stop: 11/28/16 11:34 Last Admin: 11/28/16 12:00 Dose: 1 dose Diazepam (Valium) 2 mg IVPUSH ONETIME ONE Stop: 11/28/16 09:57 Last Admin: 11/28/16 10:29 Dose: 2 mg Fentanyl (Sublimaze) 100 mcg IVPUSH ONETIME ONE Stop: 11/28/16 01:51 Last Admin: 11/28/16 01:56 Dose: 100 mcg Fentanyl (Sublimaze) 50 mcg IVPUSH ONETIME ONE Stop: 11/28/16 03:02 Last Admin: 11/28/16 03:11 Dose: 50 mcg Fentanyl (Sublimaze) 50 mcg IVPUSH Q1H PRN PRN Reason: Pain Last Admin: 11/28/16 07:57 Dose: 50 mcg Haloperidol Lactate (Haldol) 1 mg IVPUSH Q6H [facility] Last Admin: 11/28/16 15:08 Dose: Not Given Hydromorphone HCl (Dilaudid) 1 mg IVPUSH ONETIME ONE Stop: 11/28/16 00:20 Last Admin: 11/28/16 00:41 Dose: 1 mg Hydromorphone HCl (Dilaudid) 1 mg IVPUSH ONETIME ONE Stop: 11/28/16 01:00 Last Admin: 11/28/16 01:04 Dose: 1 mg Hydromorphone HCl (Dilaudid) 1 mg IVPUSH Q1H PRN PRN Reason: Abdominal Pain Last Admin: 11/28/16 08:45 Dose: 1 mg Sodium Chloride (Normal Saline) 1,000 mls @ 1,000 mls/hr IV .BOLUS STA Stop: 11/28/16 01:16 Last Admin: 11/28/16 00:38 Dose: 1,000 mls/hr Sodium Chloride (Normal Saline) 1,000 mls @ 150 mls/hr IV ASDIRECTED [facility] Last Admin: 11/28/16 01:56 Dose: 150 mls/hr Sodium Chloride (Normal Saline) 1,000 mls @ 200 mls/hr IV ASDIRECTED [facility] Last Admin: 11/29/16 15:24 Dose: 200 mls/hr Lidocaine HCl (Xylocaine 2% Viscous) 15 ml PO ONETIME ONE Stop: 11/28/16 11:36 Last Admin: 11/28/16 12:00 Dose: 15 ml Ondansetron HCl (Zofran) 4 mg IVPUSH ONETIME ONE Stop: 11/28/16 00:18 Last Admin: 11/28/16 00:39 Dose: 4 mg - Exam Abdomen: soft, no tenderness, no distension Consult PN Assessment/Plan Procedures: Procedures ASSAY OF AMYLASE (01/23/15) BLOOD CULTURE FOR BACTERIA (01/23/15) COMPLETE CBC W/AUTO DIFF WBC (11/25/15) COMPREHEN METABOLIC PANEL (11/25/15) CT ABD & PELV W/CONTRAST (01/23/15) CT ABD & PELVIS W/O CONTRAST (11/25/15) EMERGENCY DEPT VISIT (11/25/15) HYDRATE IV INFUSION ADD-ON (11/25/15) ROUTINE VENIPUNCTURE (11/25/15) THER/PROPH/DIAG INJ IV PUSH (11/25/15) THER/PROPH/DIAG IV INF ADDON (01/23/15) THER/PROPH/DIAG IV INF INIT (01/23/15) TX/PRO/DX INJ NEW DRUG ADDON (01/23/15) TX/PRO/DX INJ SAME DRUG ASSET [employer]OTECTION OFFICER (11/25/15) URINALYSIS AUTO W/O SCOPE (12/25/14) URINALYSIS AUTO W/SCOPE (11/25/15) URINE CULTURE/COLONY COUNT (01/23/15) (1) Small bowel obstruction SNOMED Code(s): 219219023 Code(s): K56.69 - OTHER INTESTINAL OBSTRUCTION Priority: Medium Current Visit: Yes Problem List Initiated/Reviewed/Updated: Yes My Orders last 24 hours: Imp: Almost no residuals with NGT clamping challenge for 24 hours. NGT can be discontinued but will wait for hospitalist input. Rec: D/C NGT follwed by lynsey.
[2016-11-30] MEDS: Insulin Aspart 100 Units/ML 3 ML Pen SUBCUT SCH ×4 (08:18→21:03)
[2016-11-30] MEDS ORDERED: Benzocaine/Cetylpyridinium/Menthol Lozenge MUCMEM PRN (08:22)
[2016-11-30] MEDS: Gabapentin 600 MG Tab PO SCH (08:35)
[2016-11-30] MEDS: Acetaminophen/oxyCODONE 325-5 MG Tab PO PRN ×3 (08:35→22:17)
[2016-11-30] MEDS: Enoxaparin 120 MG/0.8 ML Syringe SUBCUT SCH ×2 (08:36→20:23)
[2016-11-30] MEDS: Dextrose 5%-0.9% NaCl 1,000 ML IV SCH (10:43)
[2016-11-30] MEDS ORDERED: Bisacodyl 10 MG Supp RECTAL ONE (10:58)
[2016-11-30] MEDS ORDERED: Gabapentin 600 MG Tab PO ONE (11:00)
[2016-11-30] MEDS ORDERED: Magnesium Sulfate/Water 2 GM in Premix Bag 1 BAG IV ONE ×2 (12:58→19:13)
[2016-11-30] MEDS ORDERED: Simethicone 80 MG Tab.Chew PO PRN (13:01)
--- NOTE | 2016-11-30 13:11 | PCM.PN ---
Addendum entered and electronically signed by Brianna Hung PA-C 13:26: Started Levaquin IV for presumed UTI; UC ordered and pending. Original Note: <Brianna Hung - Last Filed: 11/30/16 13:20> - General Info Date of Service: 11/30/16 Admission Dx/Problem (Free Text): Admission Diagnosis/Problem Admission Diagnosis/Problem Small bowel obstruction Den is seen this morning; sleep as had just gotten pain medication. States pain is improved to his abdomen, he is passing gas, no BM yet. NG has been removed and he is more comfortable now. Will start clear liquid diet. Has c/o pain to his legs "nerve pain" and requesting dose of gabapentin be increased to his usual home dose. No other complaints/concerns voiced by patient or significant other this am. Functional Status: Reports: pain controlled, ambulating, urinating. Denies: tolerating diet (has been NPO) - Review of Systems General: Reports: No Symptoms. Denies: Fever HEENT: Reports: no symptoms Pulmonary: Reports: no symptoms. Denies: shortness of breath, cough Cardiovascular: Reports: No Symptoms. Denies: Chest Pain, Palpitations, Dyspnea on Exertion Gastrointestinal: Reports: Abdominal pain (much improved), Flatus. Denies: Diarrhea, Hematochezia, Melena, Nausea, Vomiting Genitourinary: Reports: no symptoms Neurological: Reports: No Symptoms Psychiatric: Reports: other (anxiety and hx of PTSD is reported) - Patient Data Vitals - most recent: Last Vital Signs Temp 98.4 F 11/30/16 08:15 Pulse 83 11/30/16 08:15 Resp 16 11/30/16 08:15 BP 159/83 H 11/30/16 08:15 Pulse Ox 90 L 11/30/16 08:15 Weight - most recent: 119.612 kg I&O - last 24 hours: Intake & Output 11/29/16 11/30/16 11/30/16 22:59 06:59 14:59 Intake Total 6583 746 Output Total 8659 1950 Balance 661 -1204 Lab Results last 24 hrs: Laboratory Results - last 24 hr 11/29/16 11/29/16 11/30/16 Range/Units 16:27 20:58 06:50 WBC 5.84 (4.23-9.07) K/mm3 RBC 4.54 L (4.63-6.08) M/mm3 Hgb 13.0 L (13.7-17.5) gm/L Hct 40.7 (40.1-51.0) % MCV 89.6 (79.0-92.2) fl MCH 28.6 (25.7-32.2) pg MCHC 31.9 L (32.2-35.5) g/dl RDW Std Deviation 42.4 (35.1-43.9) fL Plt Count 144 L (163-337) K/mm3 MPV 9.1 L (9.4-12.3) fl Sodium (136-145) mEq/L Potassium (3.5-5.1) mEq/L Chloride (98-107) mEq/L Carbon Dioxide (21-32) mEq/L Anion Gap (5-15) BUN (7-18) mg/dL Creatinine (0.7-1.3) mg/dL Est Cr Clr Drug Dosing mL/min Estimated GFR (MDRD) (>60) mL/min BUN/Creatinine Ratio (14-18) Glucose (74-106) mg/dL POC Glucose 84 89 (70-105) mg/dL Calcium (8.5-10.1) mg/dL Magnesium (1.8-2.4) mg/dl C-Reactive Protein (<1.0) mg/dL 11/30/16 11/30/16 Range/Units 06:50 10:56 WBC (4.23-9.07) K/mm3 RBC (4.63-6.08) M/mm3 Hgb (13.7-17.5) gm/L Hct (40.1-51.0) % MCV (79.0-92.2) fl MCH (25.7-32.2) pg MCHC (32.2-35.5) g/dl RDW Std Deviation (35.1-43.9) fL Plt Count (163-337) K/mm3 MPV (9.4-12.3) fl Sodium 142 (136-145) mEq/L Potassium 3.8 (3.5-5.1) mEq/L Chloride 105 (98-107) mEq/L Carbon Dioxide 27 (21-32) mEq/L Anion Gap 13.8 (5-15) BUN 14 (7-18) mg/dL Creatinine 1.4 H (0.7-1.3) mg/dL Est Cr Clr Drug Dosing 63.90 mL/min Estimated GFR (MDRD) 52 (>60) mL/min BUN/Creatinine Ratio 10.0 L (14-18) Glucose 114 H (74-106) mg/dL POC Glucose 114 H (70-105) mg/dL Calcium 9.1 (8.5-10.1) mg/dL Magnesium 1.5 L (1.8-2.4) mg/dl C-Reactive Protein 6.4 H* (<1.0) mg/dL Med Orders - Current: Current Medications Benzocaine/Menthol (Cepacol Sore Throat) 1 lozenge MUCMEM Q1H PRN PRN Reason: Sore Throat Dextrose/Water (Dextrose 50% In Water) 50 ml IVPUSH ASDIRECTED PRN PRN Reason: Hypoglycemia Diazepam (Valium) 2 mg IVPUSH Q8H PRN PRN Reason: Anxiety Last Admin: 11/29/16 14:45 Dose: 2 mg Duloxetine HCl (Cymbalta) 30 mg PO BEDTIME [facility] Last Admin: 11/29/16 20:23 Dose: 30 mg Enoxaparin Sodium (Lovenox) 120 mg SUBCUT Q12HR [facility] Last Admin: 11/30/16 08:36 Dose: 120 mg Gabapentin (Neurontin) 1,800 mg PO QAM [facility] Gabapentin (Neurontin) 1,200 mg PO BEDTIME [facility] Glipizide (Glucotrol Xl) 5 mg PO DAILY [facility] Magnesium Sulfate 2 gm/ Premix 50 mls @ 25 mls/hr IV ONETIME ONE Stop: 11/30/16 14:57 Insulin Aspart (Novolog) 0 unit SUBCUT QIDACANDBED [place] PRN Reason: Protocol Last Admin: 11/30/16 12:16 Dose: Not Given Metoclopramide HCl (Reglan) 10 mg IVPUSH TID [facility] Metoprolol Succinate (Toprol Xl) 100 mg PO ACBRK [facility] Ondansetron HCl (Zofran) 4 mg IVPUSH Q6H PRN PRN Reason: Nausea/Vomiting Oxycodone/Acetaminophen (Percocet 325-5 Mg) 1 tab PO Q4H PRN PRN Reason: Pain Last Admin: 11/30/16 08:35 Dose: 1 tab Pantoprazole Sodium (Protonix) 40 mg PO DAILY [facility] Saccharomyces Boulardii (Florastor) 250 mg PO BID [facility] Senna/Docusate Sodium (Senna Plus) 1 tab PO BID PRN PRN Reason: Constipation Simethicone (Simethicone) 80 mg PO Q4H PRN PRN Reason: gas/bloating/abd pain Sodium Chloride (Saline Flush) 10 ml FLUSH ASDIRECTED PRN PRN Reason: Keep Vein Open Last Admin: 11/28/16 00:39 Dose: 10 ml Discontinued Medications Benzocaine (Hurricaine 20% [place]) 1 ml MUCMEM ONETIME ONE Stop: 11/28/16 11:34 Last Admin: 11/28/16 12:00 Dose: 1 dose Bisacodyl (Dulcolax) 10 mg RECTAL ONETIME ONE Stop: 11/30/16 10:59 Last Admin: 11/30/16 11:14 Dose: 10 mg Diazepam (Valium) 2 mg IVPUSH ONETIME ONE Stop: 11/28/16 09:57 Last Admin: 11/28/16 10:29 Dose: 2 mg Fentanyl (Sublimaze) 100 mcg IVPUSH ONETIME ONE Stop: 11/28/16 01:51 Last Admin: 11/28/16 01:56 Dose: 100 mcg Fentanyl (Sublimaze) 50 mcg IVPUSH ONETIME ONE Stop: 11/28/16 03:02 Last Admin: 11/28/16 03:11 Dose: 50 mcg Fentanyl (Sublimaze) 50 mcg IVPUSH Q1H PRN PRN Reason: Pain Last Admin: 11/28/16 07:57 Dose: 50 mcg Fentanyl (Sublimaze) 50 mcg IVPUSH Q2HR PRN PRN Reason: Pain Gabapentin (Neurontin) 600 mg PO TID [facility] Last Admin: 11/30/16 08:35 Dose: 600 mg Gabapentin (Neurontin) 1,200 mg PO ONETIME ONE Stop: 11/30/16 11:01 Glipizide (Glucotrol Xl) 5 mg PO DAILY [facility] Haloperidol Lactate (Haldol) 1 mg IVPUSH Q6H [facility] Last Admin: 11/28/16 15:08 Dose: Not Given Hydromorphone HCl (Dilaudid) 1 mg IVPUSH ONETIME ONE Stop: 11/28/16 00:20 Last Admin: 11/28/16 00:41 Dose: 1 mg Hydromorphone HCl (Dilaudid) 1 mg IVPUSH ONETIME ONE Stop: 11/28/16 01:00 Last Admin: 11/28/16 01:04 Dose: 1 mg Hydromorphone HCl (Dilaudid) 1 mg IVPUSH Q1H PRN PRN Reason: Abdominal Pain Last Admin: 11/28/16 08:45 Dose: 1 mg Hydromorphone HCl (Dilaudid) 2 mg IVPUSH Q1H PRN PRN Reason: Abdominal Pain Last Admin: 11/30/16 04:09 Dose: 2 mg Sodium Chloride (Normal Saline) 1,000 mls @ 1,000 mls/hr IV .BOLUS STA Stop: 11/28/16 01:16 Last Admin: 11/28/16 00:38 Dose: 1,000 mls/hr Sodium Chloride (Normal Saline) 1,000 mls @ 150 mls/hr IV ASDIRECTED [facility] Last Admin: 11/28/16 01:56 Dose: 150 mls/hr Sodium Chloride (Normal Saline) 1,000 mls @ 200 mls/hr IV ASDIRECTED [facility] Last Admin: 11/29/16 15:24 Dose: 200 mls/hr Dextrose/Sodium Chloride (Dextrose 5%-Normal Saline) 1,000 mls @ 70 mls/hr IV ASDIRECTED [facility] Last Admin: 11/30/16 10:43 Dose: 70 mls/hr Lidocaine HCl (Xylocaine 2% Viscous) 15 ml PO ONETIME ONE Stop: 11/28/16 11:36 Last Admin: 11/28/16 12:00 Dose: 15 ml Non-Formulary Medication (Bisoprolol Fumarate [Zebeta]) 5 mg PO ACBREAKFAST [facility] Ondansetron HCl (Zofran) 4 mg IVPUSH ONETIME ONE Stop: 11/28/16 00:18 Last Admin: 11/28/16 00:39 Dose: 4 mg Pantoprazole Sodium (Protonix Iv) 40 mg IVPUSH Q12H [facility] Last Admin: 11/30/16 04:23 Dose: 40 mg - Exam Quality Assessment: DVT prophylaxis General: alert, cooperative, no acute distress HEENT: Pupils equal, Pupils reactive, EOMI, Mucous membr. moist/pink Neck: supple Lungs: Clear to auscultation, Normal respiratory effort, Decreased breath sounds (to bases bilat) Cardiovascular: Regular Rate, Regular Rhythm Abdomen: bowel sounds present, soft, no distension, tenderness (diffuse; worse to RLQ this am). No: rigidity, rebound, guarding (Male) Exam: Deferred Extremities: no edema, no calf tenderness Peripheral Pulses: 2+: Dorsalis Pedis (L), Dorsalis Pedis (R) Skin: warm, dry Neurological: no new focal deficit Psy/Mental Status: alert, normal affect, normal mood - Problem List & Annotations (1) Small bowel obstruction SNOMED Code(s): 054891453 Code(s): K56.69 - OTHER INTESTINAL OBSTRUCTION Status: Acute Priority: High Current Visit: Yes (2) Neurogenic pain SNOMED Code(s): 841549924 Code(s): M79.2 - NEURALGIA AND NEURITIS, UNSPECIFIED Status: Acute Priority: High Current Visit: Yes (3) HTN (hypertension) SNOMED Code(s): 11132017 Code(s): I10 - ESSENTIAL (PRIMARY) HYPERTENSION Status: Chronic Priority : Medium Current Visit: Yes Qualifiers: Hypertension type: essential hypertension Qualified Code(s): I10 - Essential (primary) hypertension (4) CAD (coronary artery disease) SNOMED Code(s): 94769705 Code(s): I25.10 - ATHSCL HEART DISEASE OF [place] CORONARY ARTERY W/O ANG PCTRS Status: Chronic Priority: Medium Current Visit: No Qualifiers: Coronary Disease-Associated Artery/Lesion type: unspecified vessel or lesion type [place] vs. transplanted heart: [place] heart Associated angina: without angina Qualified Code(s): I25.10 - Atherosclerotic heart disease of [place] coronary artery without angina pectoris (5) Type 2 diabetes mellitus SNOMED Code(s): 32137913 Code(s): E11.9 - TYPE 2 DIABETES MELLITUS WITHOUT COMPLICATIONS Status: Chronic Priority: Medium Current Visit: Yes Qualifiers: Diabetes mellitus complication status: without complication Diabetes mellitus usp insulin use: without usp use Qualified Code(s): E11.9 - Type 2 diabetes mellitus without complications (6) Anxiety SNOMED Code(s): 52617607 Code(s): F41.9 - ANXIETY DISORDER, UNSPECIFIED Status: Chronic Priority: High Current Visit: Yes (7) History of posttraumatic stress disorder (PTSD) SNOMED Code(s): 184113897 Code(s): Z86.59 - PERSONAL HISTORY OF OTHER MENTAL AND BEHAVIORAL DISORDERS Status: Chronic Priority: Medium Current Visit: Yes (8) History of atrial fibrillation SNOMED Code(s): 268472363 Code(s): Z86.79 - PERSONAL HISTORY OF OTHER DISEASES OF THE CIRCULATORY SYSTEM Status: Chronic Priority: Medium Current Visit: No - Problem List Review Problem List Initiated/Reviewed/Updated: Yes - My Orders Last 24 Hours: My Active Orders 11/30/16 08:16 Ambulate [RC] QID 11/30/16 08:22 Benzocaine/Cetylpyrd/Menthol [Cepacol Sore Throat] 1 lozenge MUCMEM Q1H PRN 11/30/16 11:15 glipiZIDE [Glucotrol XL] 5 mg PO DAILY 11/30/16 12:58 Magnesium Sulfate/Water [Magnesium Sulfate 2 GM in Water 50 ML] 2 gm Premix Bag 1 bag IV ONETIME 11/30/16 12:59 RT Incentive Spirometry [RC] Q2HWA Turn, Cough, Deep Breathe [RC] Q2HWA 11/30/16 13:01 Simethicone 80 mg PO Q4H PRN 11/30/16 13:03 Docusate Sodium/Sennosides [Senna Plus] 1 tab PO BID PRN 11/30/16 13:15 Saccharomyces Boulardii [Florastor] 250 mg PO BID 11/30/16 15:00 Metoclopramide [Reglan] 10 mg IVPUSH TID 11/30/16 Lunch Clear Liquid Diet [DIET] 12/01/16 06:00 Metoprolol Succinate [Toprol XL] 100 mg PO ACBRK 12/01/16 09:00 Pantoprazole [ProTONIX] 40 mg PO DAILY - Plan Plan:: Impression/Plan: SBO -NG to be dc'd this am; start clear liquids per General Surgery recommendations -Lozenges for sore throat -Reglan, suppository as directed per Dr. Sanabria, probiotic -Resume oral meds -Abd pain much improved; will DC IV narcotic pain medications, cont percocet PO for now -Hx Previous partial SBO without surgery -History of extensive abdominal surgeries -Recommend regular bowel regimen at home upon discharge Chronic conditions: Diabetes mellitus- resume glipizide, SSI PRN PVD with CEA/LYNDA CAD/NM- cont home meds A-Fib- xarelto at home; cont with lovenox for now, likely transition back to xarelto tomorrow if tolerating diet HTN- cont home meds Hyperlipidemia- cont home meds History of bladder cancer S/P neobladder; ureteral stent Chronic neuropathic pain- gabapentin home med Hx of anxiety/PTSD with ? mild exacerbations- will consult Psychiatry/Dr. Bagley for opinion. Other: DVT/GI prophylaxis Ambulate QID PT/OT CM/SW for assist with DC planning-- likely dc home in 1-3 days pending toleration of advancement of diet Patient is Full Code <Coreen Merchant - Last Filed: 11/30/16 19:15> - Patient Data Vitals - most recent: Last Vital Signs Temp 37.3 C 11/30/16 15:00 Pulse 90 11/30/16 15:00 Resp 20 11/30/16 15:00 BP 148/88 H 11/30/16 15:00 Pulse Ox 96 11/30/16 15:00 I&O - last 24 hours: Intake & Output 11/30/16 11/30/16 11/30/16 06:59 14:59 22:59 Intake Total 746 1820 Output Total 1950 1950 Balance -1204 -130 Lab Results last 24 hrs: Laboratory Results - last 24 hr 11/29/16 11/30/16 11/30/16 Range/Units 20:58 06:50 06:50 WBC 5.84 (4.23-9.07) K/mm3 RBC 4.54 L (4.63-6.08) M/mm3 Hgb 13.0 L (13.7-17.5) gm/L Hct 40.7 (40.1-51.0) % MCV 89.6 (79.0-92.2) fl MCH 28.6 (25.7-32.2) pg MCHC 31.9 L (32.2-35.5) g/dl RDW Std Deviation 42.4 (35.1-43.9) fL Plt Count 144 L (163-337) K/mm3 MPV 9.1 L (9.4-12.3) fl Sodium 142 (136-145) mEq/L Potassium 3.8 (3.5-5.1) mEq/L Chloride 105 (98-107) mEq/L Carbon Dioxide 27 (21-32) mEq/L Anion Gap 13.8 (5-15) BUN 14 (7-18) mg/dL Creatinine 1.4 H (0.7-1.3) mg/dL Est Cr Clr Drug Dosing 63.90 mL/min Estimated GFR (MDRD) 52 (>60) mL/min BUN/Creatinine Ratio 10.0 L (14-18) Glucose 114 H (74-106) mg/dL POC Glucose 89 (70-105) mg/dL Calcium 9.1 (8.5-10.1) mg/dL Magnesium 1.5 L (1.8-2.4) mg/dl C-Reactive Protein 6.4 H* (<1.0) mg/dL 11/30/16 11/30/16 Range/Units 10:56 17:07 WBC (4.23-9.07) K/mm3 RBC (4.63-6.08) M/mm3 Hgb (13.7-17.5) gm/L Hct (40.1-51.0) % MCV (79.0-92.2) fl MCH (25.7-32.2) pg MCHC (32.2-35.5) g/dl RDW Std Deviation (35.1-43.9) fL Plt Count (163-337) K/mm3 MPV (9.4-12.3) fl Sodium (136-145) mEq/L Potassium (3.5-5.1) mEq/L Chloride (98-107) mEq/L Carbon Dioxide (21-32) mEq/L Anion Gap (5-15) BUN (7-18) mg/dL Creatinine (0.7-1.3) mg/dL Est Cr Clr Drug Dosing mL/min Estimated GFR (MDRD) (>60) mL/min BUN/Creatinine Ratio (14-18) Glucose (74-106) mg/dL POC Glucose 114 H 118 H (70-105) mg/dL Calcium (8.5-10.1) mg/dL Magnesium (1.8-2.4) mg/dl C-Reactive Protein (<1.0) mg/dL Med Orders - Current: Current Medications Benzocaine/Menthol (Cepacol Sore Throat) 1 lozenge MUCMEM Q1H PRN PRN Reason: Sore Throat Last Admin: 11/30/16 17:04 Dose: 1 lozenge Dextrose/Water (Dextrose 50% In Water) 50 ml IVPUSH ASDIRECTED PRN PRN Reason: Hypoglycemia Diazepam (Valium) 2 mg IVPUSH Q8H PRN PRN Reason: Anxiety Last Admin: 11/29/16 14:45 Dose: 2 mg Duloxetine HCl (Cymbalta) 30 mg PO BEDTIME [facility] Last Admin: 11/29/16 20:23 Dose: 30 mg Enoxaparin Sodium (Lovenox) 120 mg SUBCUT Q12HR [facility] Last Admin: 11/30/16 08:36 Dose: 120 mg Gabapentin (Neurontin) 900 mg PO TID [facility] Glipizide (Glucotrol Xl) 5 mg PO DAILY [facility] Last Admin: 11/30/16 14:18 Dose: 5 mg Levofloxacin/Dextrose 750 mg/ (Premix) 150 mls @ 100 mls/hr IV Q24H [facility] Last Admin: 11/30/16 14:16 Dose: 100 mls/hr Magnesium Sulfate 2 gm/ Premix 50 mls @ 25 mls/hr IV ONETIME ONE Stop: 11/30/16 21:12 Insulin Aspart (Novolog) 0 unit SUBCUT QIDACANDBED [facility] PRN Reason: Protocol Last Admin: 11/30/16 17:46 Dose: Not Given Metoclopramide HCl (Reglan) 10 mg IVPUSH TID [facility] Last Admin: 11/30/16 15:39 Dose: 10 mg Metoprolol Succinate (Toprol Xl) 100 mg PO ACBRK [facility] Ondansetron HCl (Zofran) 4 mg IVPUSH Q6H PRN PRN Reason: Nausea/Vomiting Oxycodone/Acetaminophen (Percocet 325-5 Mg) 1 tab PO Q4H PRN PRN Reason: Pain Last Admin: 11/30/16 17:03 Dose: 1 tab Pantoprazole Sodium (Protonix) 40 mg PO DAILY [facility] Saccharomyces Boulardii (Florastor) 250 mg PO BID [facility] Last Admin: 11/30/16 14:17 Dose: 250 mg Senna/Docusate Sodium (Senna Plus) 1 tab PO BID PRN PRN Reason: Constipation Simethicone (Simethicone) 80 mg PO Q4H PRN PRN Reason: gas/bloating/abd pain Sodium Chloride (Saline Flush) 10 ml FLUSH ASDIRECTED PRN PRN Reason: Keep Vein Open Discontinued Medications Benzocaine (Hurricaine 20% [place]) 1 ml MUCMEM ONETIME ONE Stop: 11/28/16 11:34 Last Admin: 11/28/16 12:00 Dose: 1 dose Bisacodyl (Dulcolax) 10 mg RECTAL ONETIME ONE Stop: 11/30/16 10:59 Last Admin: 11/30/16 11:14 Dose: 10 mg Diazepam (Valium) 2 mg IVPUSH ONETIME ONE Stop: 11/28/16 09:57 Last Admin: 11/28/16 10:29 Dose: 2 mg Fentanyl (Sublimaze) 100 mcg IVPUSH ONETIME ONE Stop: 11/28/16 01:51 Last Admin: 11/28/16 01:56 Dose: 100 mcg Fentanyl (Sublimaze) 50 mcg IVPUSH ONETIME ONE Stop: 11/28/16 03:02 Last Admin: 11/28/16 03:11 Dose: 50 mcg Fentanyl (Sublimaze) 50 mcg IVPUSH Q1H PRN PRN Reason: Pain Last Admin: 11/28/16 07:57 Dose: 50 mcg Fentanyl (Sublimaze) 50 mcg IVPUSH Q2HR PRN PRN Reason: Pain Gabapentin (Neurontin) 600 mg PO TID [facility] Last Admin: 11/30/16 08:35 Dose: 600 mg Gabapentin (Neurontin) 1,800 mg PO QAM [facility] Gabapentin (Neurontin) 1,200 mg PO ONETIME ONE Stop: 11/30/16 11:01 Last Admin: 11/30/16 16:18 Dose: Not Given Gabapentin (Neurontin) 1,200 mg PO BEDTIME [facility] Glipizide (Glucotrol Xl) 5 mg PO DAILY [facility] Haloperidol Lactate (Haldol) 1 mg IVPUSH Q6H [facility] Last Admin: 11/28/16 15:08 Dose: Not Given Hydromorphone HCl (Dilaudid) 1 mg IVPUSH ONETIME ONE Stop: 11/28/16 00:20 Last Admin: 11/28/16 00:41 Dose: 1 mg Hydromorphone HCl (Dilaudid) 1 mg IVPUSH ONETIME ONE Stop: 11/28/16 01:00 Last Admin: 11/28/16 01:04 Dose: 1 mg Hydromorphone HCl (Dilaudid) 1 mg IVPUSH Q1H PRN PRN Reason: Abdominal Pain Last Admin: 11/28/16 08:45 Dose: 1 mg Hydromorphone HCl (Dilaudid) 2 mg IVPUSH Q1H PRN PRN Reason: Abdominal Pain Last Admin: 11/30/16 04:09 Dose: 2 mg Sodium Chloride (Normal Saline) 1,000 mls @ 1,000 mls/hr IV .BOLUS STA Stop: 11/28/16 01:16 Last Admin: 11/28/16 00:38 Dose: 1,000 mls/hr Sodium Chloride (Normal Saline) 1,000 mls @ 150 mls/hr IV ASDIRECTED [facility] Last Admin: 11/28/16 01:56 Dose: 150 mls/hr Sodium Chloride (Normal Saline) 1,000 mls @ 200 mls/hr IV ASDIRECTED [facility] Last Admin: 11/29/16 15:24 Dose: 200 mls/hr Dextrose/Sodium Chloride (Dextrose 5%-Normal Saline) 1,000 mls @ 70 mls/hr IV ASDIRECTED [facility] Last Admin: 11/30/16 10:43 Dose: 70 mls/hr Magnesium Sulfate 2 gm/ Premix 50 mls @ 25 mls/hr IV ONETIME ONE Stop: 11/30/16 14:57 Last Admin: 11/30/16 14:17 Dose: 25 mls/hr Lidocaine HCl (Xylocaine 2% Viscous) 15 ml PO ONETIME ONE Stop: 11/28/16 11:36 Last Admin: 11/28/16 12:00 Dose: 15 ml Non-Formulary Medication (Bisoprolol Fumarate [Zebeta]) 5 mg PO ACBREAKFAST [facility] Ondansetron HCl (Zofran) 4 mg IVPUSH ONETIME ONE Stop: 11/28/16 00:18 Last Admin: 11/28/16 00:39 Dose: 4 mg Pantoprazole Sodium (Protonix Iv) 40 mg IVPUSH Q12H [facility] Last Admin: 11/30/16 04:23 Dose: 40 mg Sodium Chloride (Saline Flush) 10 ml FLUSH ASDIRECTED PRN PRN Reason: Keep Vein Open Last Admin: 11/28/16 00:39 Dose: 10 ml - Problem List & Annotations (1) Small bowel obstruction SNOMED Code(s): 073086803 Code(s): K56.69 - OTHER INTESTINAL OBSTRUCTION Status: Acute Priority: High Current Visit: Yes (2) Neurogenic pain SNOMED Code(s): 948239036 Code(s): M79.2 - NEURALGIA AND NEURITIS, UNSPECIFIED Status: Acute Priority: High Current Visit: Yes - My Orders Last 24 Hours: My Active Orders 11/30/16 15:29 Sodium Chloride 0.9% [Saline Flush] 10 ml FLUSH ASDIRECTED PRN Convert IV to Saline Lock [OM.PC] Routine 11/30/16 19:13 Magnesium Sulfate/Water [Magnesium Sulfate 2 GM in Water 50 ML] 2 gm Premix Bag 1 bag IV ONETIME 11/30/16 21:00 Gabapentin [Neurontin] 900 mg PO TID 11/30/16 Lunch Full Liquid Diet [DIET] 12/03/16 07:00 CBC W/O DIFF,HEMOGRAM [HEME] MOTH@0700 12/07/16 07:00 CBC W/O DIFF,HEMOGRAM [HEME] MOTH@0700 12/10/16 07:00 CBC W/O DIFF,HEMOGRAM [HEME] MOTH@0700 12/14/16 07:00 CBC W/O DIFF,HEMOGRAM [HEME] MOTH@0700 12/17/16 07:00 CBC W/O DIFF,HEMOGRAM [HEME] MOTH@0700 - Plan Plan:: DC expected 24-48 hours as diet is tolerated.
[2016-11-30] MEDS ORDERED: glipiZIDE 5 MG Tab.ER PO SCH (13:15)
[2016-11-30] MEDS ORDERED: Levofloxacin/Dextrose 5%-Water 750 MG in Premix Bag 1 BAG IV SCH (13:30)
[2016-11-30] MEDS: Saccharomyces Boulardii (Probiotic) 250 MG Cap PO SCH ×2 (14:17→20:21)
[2016-11-30] MEDS: glipiZIDE 5 MG Tab.ER PO SCH (14:18)
[2016-11-30] MEDS ORDERED: Sodium Chloride 0.9% 10 ML Syringe FLUSH PRN (15:29)
[2016-11-30] MEDS: Metoclopramide 10 MG/2 ML SDV IVPUSH SCH ×2 (15:39→20:23)
[2016-11-30] MEDS ORDERED: Temazepam 30 MG Cap PO PRN (19:24)
[2016-11-30] MEDS: Gabapentin 300 MG Cap PO SCH (20:22)
[2016-11-30] MEDS: DULoxetine 30 MG Cap PO SCH (20:22)
[2016-11-30] MEDS ORDERED: Gabapentin 600 MG Tab PO SCH (21:00)
[2016-12-01] MEDS ORDERED: BISOPROLOL FUMARATE 5 MG PO SCH (06:00)
[2016-12-01] MEDS ORDERED: Metoprolol Succinate 50 MG Tab.ER PO SCH (06:00)
[2016-12-01] MEDS: Insulin Aspart 100 Units/ML 3 ML Pen SUBCUT SCH ×2 (06:21→12:08)
--- NOTE | 2016-12-01 06:54 | PCM.CONSN ---
- General Info Date of Service: 12/01/16 Functional Status: Reports: pain controlled, tolerating diet (Clear liquids), ambulating, urinating - Review of Systems Gastrointestinal: Reports: Flatus, Other (Passed mucus and hard stool after Dulcolax given yesterday.) - Patient Data Vitals - most recent: Last Vital Signs Temp 36.7 C 12/01/16 02:22 Pulse 74 12/01/16 06:22 Resp 18 12/01/16 03:00 BP 156/97 H 12/01/16 06:22 Pulse Ox 94 L 12/01/16 03:00 Weight - most recent: 112.808 kg I&O - last 24 hours: Intake & Output 11/30/16 11/30/16 12/01/16 14:59 22:59 06:59 Intake Total 1820 1390 Output Total 1950 1850 Balance -130 -460 Lab Results last 24 hrs: Laboratory Results - last 24 hr 11/30/16 11/30/16 11/30/16 Range/Units 06:50 06:50 10:56 WBC 5.84 (4.23-9.07) K/mm3 RBC 4.54 L (4.63-6.08) M/mm3 Hgb 13.0 L (13.7-17.5) gm/L Hct 40.7 (40.1-51.0) % MCV 89.6 (79.0-92.2) fl MCH 28.6 (25.7-32.2) pg MCHC 31.9 L (32.2-35.5) g/dl RDW Std Deviation 42.4 (35.1-43.9) fL Plt Count 144 L (163-337) K/mm3 MPV 9.1 L (9.4-12.3) fl Sodium 142 (136-145) mEq/L Potassium 3.8 (3.5-5.1) mEq/L Chloride 105 (98-107) mEq/L Carbon Dioxide 27 (21-32) mEq/L Anion Gap 13.8 (5-15) BUN 14 (7-18) mg/dL Creatinine 1.4 H (0.7-1.3) mg/dL Est Cr Clr Drug Dosing 63.90 mL/min Estimated GFR (MDRD) 52 (>60) mL/min BUN/Creatinine Ratio 10.0 L (14-18) Glucose 114 H (74-106) mg/dL POC Glucose 114 H (70-105) mg/dL Calcium 9.1 (8.5-10.1) mg/dL Magnesium 1.5 L (1.8-2.4) mg/dl C-Reactive Protein 6.4 H* (<1.0) mg/dL 11/30/16 11/30/16 12/01/16 Range/Units 17:07 20:32 06:19 WBC (4.23-9.07) K/mm3 RBC (4.63-6.08) M/mm3 Hgb (13.7-17.5) gm/L Hct (40.1-51.0) % MCV (79.0-92.2) fl MCH (25.7-32.2) pg MCHC (32.2-35.5) g/dl RDW Std Deviation (35.1-43.9) fL Plt Count (163-337) K/mm3 MPV (9.4-12.3) fl Sodium (136-145) mEq/L Potassium (3.5-5.1) mEq/L Chloride (98-107) mEq/L Carbon Dioxide (21-32) mEq/L Anion Gap (5-15) BUN (7-18) mg/dL Creatinine (0.7-1.3) mg/dL Est Cr Clr Drug Dosing mL/min Estimated GFR (MDRD) (>60) mL/min BUN/Creatinine Ratio (14-18) Glucose (74-106) mg/dL POC Glucose 118 H 88 82 (70-105) mg/dL Calcium (8.5-10.1) mg/dL Magnesium (1.8-2.4) mg/dl C-Reactive Protein (<1.0) mg/dL Med Orders - Current: Current Medications Benzocaine/Menthol (Cepacol Sore Throat) 1 lozenge MUCMEM Q1H PRN PRN Reason: Sore Throat Last Admin: 11/30/16 17:04 Dose: 1 lozenge Dextrose/Water (Dextrose 50% In Water) 50 ml IVPUSH ASDIRECTED PRN PRN Reason: Hypoglycemia Diazepam (Valium) 2 mg IVPUSH Q8H PRN PRN Reason: Anxiety Last Admin: 12/01/16 02:19 Dose: 2 mg Duloxetine HCl (Cymbalta) 30 mg PO BEDTIME [facility] Last Admin: 11/30/16 20:22 Dose: 30 mg Enoxaparin Sodium (Lovenox) 120 mg SUBCUT Q12HR [facility] Last Admin: 11/30/16 20:23 Dose: 120 mg Gabapentin (Neurontin) 900 mg PO TID [facility] Last Admin: 11/30/16 20:22 Dose: 900 mg Glipizide (Glucotrol Xl) 5 mg PO DAILY [facility] Last Admin: 11/30/16 14:18 Dose: 5 mg Levofloxacin/Dextrose 750 mg/ (Premix) 150 mls @ 100 mls/hr IV Q24H [facility] Last Admin: 11/30/16 14:16 Dose: 100 mls/hr Insulin Aspart (Novolog) 0 unit SUBCUT QIDACANDBED [facility] PRN Reason: Protocol Last Admin: 12/01/16 06:21 Dose: Not Given Metoclopramide HCl (Reglan) 10 mg IVPUSH TID [facility] Last Admin: 11/30/16 20:23 Dose: 10 mg Metoprolol Succinate (Toprol Xl) 100 mg PO ACBRK [facility] Last Admin: 12/01/16 06:22 Dose: 100 mg Ondansetron HCl (Zofran) 4 mg IVPUSH Q6H PRN PRN Reason: Nausea/Vomiting Oxycodone/Acetaminophen (Percocet 325-5 Mg) 1 tab PO Q4H PRN PRN Reason: Pain Last Admin: 11/30/16 22:17 Dose: 1 tab Pantoprazole Sodium (Protonix) 40 mg PO DAILY [facility] Saccharomyces Boulardii (Florastor) 250 mg PO BID [facility] Last Admin: 11/30/16 20:21 Dose: 250 mg Senna/Docusate Sodium (Senna Plus) 1 tab PO BID PRN PRN Reason: Constipation Simethicone (Simethicone) 80 mg PO Q4H PRN PRN Reason: gas/bloating/abd pain Sodium Chloride (Saline Flush) 10 ml FLUSH ASDIRECTED PRN PRN Reason: Keep Vein Open Temazepam (Restoril) 30 mg PO BEDTIME PRN PRN Reason: Insomnia Last Admin: 11/30/16 20:22 Dose: 30 mg Discontinued Medications Benzocaine (Hurricaine 20% [place]) 1 ml MUCMEM ONETIME ONE Stop: 11/28/16 11:34 Last Admin: 11/28/16 12:00 Dose: 1 dose Bisacodyl (Dulcolax) 10 mg RECTAL ONETIME ONE Stop: 11/30/16 10:59 Last Admin: 11/30/16 11:14 Dose: 10 mg Diazepam (Valium) 2 mg IVPUSH ONETIME ONE Stop: 11/28/16 09:57 Last Admin: 11/28/16 10:29 Dose: 2 mg Fentanyl (Sublimaze) 100 mcg IVPUSH ONETIME ONE Stop: 11/28/16 01:51 Last Admin: 11/28/16 01:56 Dose: 100 mcg Fentanyl (Sublimaze) 50 mcg IVPUSH ONETIME ONE Stop: 11/28/16 03:02 Last Admin: 11/28/16 03:11 Dose: 50 mcg Fentanyl (Sublimaze) 50 mcg IVPUSH Q1H PRN PRN Reason: Pain Last Admin: 11/28/16 07:57 Dose: 50 mcg Fentanyl (Sublimaze) 50 mcg IVPUSH Q2HR PRN PRN Reason: Pain Gabapentin (Neurontin) 600 mg PO TID [facility] Last Admin: 11/30/16 08:35 Dose: 600 mg Gabapentin (Neurontin) 1,800 mg PO QAM [facility] Gabapentin (Neurontin) 1,200 mg PO ONETIME ONE Stop: 11/30/16 11:01 Last Admin: 11/30/16 16:18 Dose: Not Given Gabapentin (Neurontin) 1,200 mg PO BEDTIME [facility] Glipizide (Glucotrol Xl) 5 mg PO DAILY [facility] Haloperidol Lactate (Haldol) 1 mg IVPUSH Q6H [facility] Last Admin: 11/28/16 15:08 Dose: Not Given Hydromorphone HCl (Dilaudid) 1 mg IVPUSH ONETIME ONE Stop: 11/28/16 00:20 Last Admin: 11/28/16 00:41 Dose: 1 mg Hydromorphone HCl (Dilaudid) 1 mg IVPUSH ONETIME ONE Stop: 11/28/16 01:00 Last Admin: 11/28/16 01:04 Dose: 1 mg Hydromorphone HCl (Dilaudid) 1 mg IVPUSH Q1H PRN PRN Reason: Abdominal Pain Last Admin: 11/28/16 08:45 Dose: 1 mg Hydromorphone HCl (Dilaudid) 2 mg IVPUSH Q1H PRN PRN Reason: Abdominal Pain Last Admin: 11/30/16 04:09 Dose: 2 mg Sodium Chloride (Normal Saline) 1,000 mls @ 1,000 mls/hr IV .BOLUS STA Stop: 11/28/16 01:16 Last Admin: 11/28/16 00:38 Dose: 1,000 mls/hr Sodium Chloride (Normal Saline) 1,000 mls @ 150 mls/hr IV ASDIRECTED [facility] Last Admin: 11/28/16 01:56 Dose: 150 mls/hr Sodium Chloride (Normal Saline) 1,000 mls @ 200 mls/hr IV ASDIRECTED [facility] Last Admin: 11/29/16 15:24 Dose: 200 mls/hr Dextrose/Sodium Chloride (Dextrose 5%-Normal Saline) 1,000 mls @ 70 mls/hr IV ASDIRECTED [facility] Last Admin: 11/30/16 10:43 Dose: 70 mls/hr Magnesium Sulfate 2 gm/ Premix 50 mls @ 25 mls/hr IV ONETIME ONE Stop: 11/30/16 14:57 Last Admin: 11/30/16 14:17 Dose: 25 mls/hr Magnesium Sulfate 2 gm/ Premix 50 mls @ 25 mls/hr IV ONETIME ONE Stop: 11/30/16 21:12 Last Admin: 11/30/16 20:20 Dose: 25 mls/hr Lidocaine HCl (Xylocaine 2% Viscous) 15 ml PO ONETIME ONE Stop: 11/28/16 11:36 Last Admin: 11/28/16 12:00 Dose: 15 ml Non-Formulary Medication (Bisoprolol Fumarate [Zebeta]) 5 mg PO ACBREAKFAST [facility] Ondansetron HCl (Zofran) 4 mg IVPUSH ONETIME ONE Stop: 11/28/16 00:18 Last Admin: 11/28/16 00:39 Dose: 4 mg Pantoprazole Sodium (Protonix Iv) 40 mg IVPUSH Q12H [facility] Last Admin: 11/30/16 04:23 Dose: 40 mg Sodium Chloride (Saline Flush) 10 ml FLUSH ASDIRECTED PRN PRN Reason: Keep Vein Open Last Admin: 11/28/16 00:39 Dose: 10 ml - Exam General: alert, oriented, cooperative, no acute distress Abdomen: soft, no tenderness Consult PN Assessment/Plan Procedures: Procedures ASSAY OF AMYLASE (01/23/15) BLOOD CULTURE FOR BACTERIA (01/23/15) COMPLETE CBC W/AUTO DIFF WBC (11/25/15) COMPREHEN METABOLIC PANEL (11/25/15) CT ABD & PELV W/CONTRAST (01/23/15) CT ABD & PELVIS W/O CONTRAST (11/25/15) EMERGENCY DEPT VISIT (11/25/15) HYDRATE IV INFUSION ADD-ON (11/25/15) ROUTINE VENIPUNCTURE (11/25/15) THER/PROPH/DIAG INJ IV PUSH (11/25/15) THER/PROPH/DIAG IV INF ADDON (01/23/15) THER/PROPH/DIAG IV INF INIT (01/23/15) TX/PRO/DX INJ NEW DRUG ADDON (01/23/15) TX/PRO/DX INJ SAME DRUG [employer] (11/25/15) URINALYSIS AUTO W/O SCOPE (12/25/14) URINALYSIS AUTO W/SCOPE (11/25/15) URINE CULTURE/COLONY COUNT (01/23/15) (1) Small bowel obstruction SNOMED Code(s): 605511174 Code(s): K56.69 - OTHER INTESTINAL OBSTRUCTION Priority: High Current Visit: Yes Problem List Initiated/Reviewed/Updated: Yes Plan: Imp: Steady progress. Tolerated clear liquids yesterday, without symptoms. Small amount of mucus with stool passed after Dulcolax suppository given. Most likely will be able to tolerate full a full liquid or regular diet. Rec: Advance diet.
[2016-12-01 07:54] VITALS: BP 142/89
[2016-12-01] MEDS ORDERED: Gabapentin 600 MG Tab PO SCH (08:00)
[2016-12-01] MEDS: Acetaminophen/oxyCODONE 325-5 MG Tab PO PRN (08:33)
[2016-12-01] MEDS: Gabapentin 300 MG Cap PO SCH (08:33)
[2016-12-01] MEDS: Saccharomyces Boulardii (Probiotic) 250 MG Cap PO SCH (08:33)
[2016-12-01] MEDS: glipiZIDE 5 MG Tab.ER PO SCH (08:34)
[2016-12-01] MEDS: Metoclopramide 10 MG/2 ML SDV IVPUSH SCH (08:34)
[2016-12-01] MEDS: Enoxaparin 120 MG/0.8 ML Syringe SUBCUT SCH (08:36)
[2016-12-01] MEDS ORDERED: Pantoprazole 40 MG Tab.CR PO SCH (09:00)
--- NOTE | 2016-12-01 10:54 | PCM.DCSUM1 ---
<Brianna Hung - Last Filed: 12/04/16 12:41> Discharge Summary - Hospital Course Free Text/Narrative:: 56 year old male with history of bladder cancer, s/p neobladder after a radiacl cystectomy presents to ED with abdominal pain, n/v. He has a partial SBO, he has had a similar presentation several years ago. He unfortunately had a difficult experience with an NGT and on admission refused it. However, he has agreed to have an NGT placed after a discussion of the benefit for his condition. Associated symptoms include nausea and vomiting. Hospitalist service is consulted for admission for SBO. Dr. Sanabria, General Surgery is consulted for surgical opinion. Patient was managed medically, kept NPO with NG in place x 2 days. NG was clamped, then DC'd, diet slowly advanced, prokinetics and antiemetics, ambualtion. Patient did well and will be discharged home on probiotic and bowel regimen with follow up within one week with his PCP. - Discharge Data Discharge Date: 12/01/16 (admit date11/28/16) Discharge Disposition: Home, Self-Care 01 Condition: Good - Discharge Diagnosis/Problem(s) (1) Small bowel obstruction SNOMED Code(s): 272770582 ICD Code: K56.69 - OTHER INTESTINAL OBSTRUCTION Status: Acute Priority: High (2) Neurogenic pain SNOMED Code(s): 142403144 ICD Code: M79.2 - NEURALGIA AND NEURITIS, UNSPECIFIED Status: Acute Priority: High (3) HTN (hypertension) SNOMED Code(s): 43000810 ICD Code: I10 - ESSENTIAL (PRIMARY) HYPERTENSION Status: Chronic Priority : Medium Qualifiers: Hypertension type: essential hypertension Qualified Code(s): I10 - Essential (primary) hypertension (4) CAD (coronary artery disease) SNOMED Code(s): 11984263 ICD Code: I25.10 - ATHSCL HEART DISEASE OF [place] CORONARY ARTERY W/O ANG PCTRS Status: Chronic Priority: Medium Qualifiers: Coronary Disease-Associated Artery/Lesion type: unspecified vessel or lesion type [place] vs. transplanted heart: [place] heart Associated angina: without angina Qualified Code(s): I25.10 - Atherosclerotic heart disease of [place] coronary artery without angina pectoris (5) Type 2 diabetes mellitus SNOMED Code(s): 19401719 ICD Code: E11.9 - TYPE 2 DIABETES MELLITUS WITHOUT COMPLICATIONS Status: Chronic Priority: Medium Qualifiers: Diabetes mellitus complication status: without complication Diabetes mellitus correction insulin use: without ad terminal makeup operator use Qualified Code(s): E11.9 - Type 2 diabetes mellitus without complications (6) Anxiety SNOMED Code(s): 24588552 ICD Code: F41.9 - ANXIETY DISORDER, UNSPECIFIED Status: Chronic Priority : High (7) History of posttraumatic stress disorder (PTSD) SNOMED Code(s): 749392002 ICD Code: Z86.59 - PERSONAL HISTORY OF OTHER MENTAL AND BEHAVIORAL DISORDERS Status: Chronic Priority: Medium (8) History of atrial fibrillation SNOMED Code(s): 593744131 ICD Code: Z86.79 - PERSONAL HISTORY OF OTHER DISEASES OF THE CIRCULATORY SYSTEM Status: Chronic Priority: Medium - Patient Summary/Data Operative Procedure(s) Performed: None Complications: None Consults: Consultations 11/28/16 03:08 Consult to Physician [CONS] Urgent 11/28/16 10:08 Consult to Physician [CONS] Routine Labs Pending at D/C: None Recommended Follow-up Testing/Procedures: Fup with PCP within 1 week of discharge for recheck Planned Operative Procedure(s) after DC: None Hospital Course: As above - Patient Instructions Diet: Usual Diet as Tolerated, Drink 8-10+ Glasses/Day Activity: As Tolerated (walk 3 times daily x 10-15 minutes at a time) Driving: May Drive Today (caution with driving and avoid driving if taking narcotic pain medications) Showering/Bathing: May Shower Notify Provider of: Fever, Increased Pain, Nausea and/or Vomiting - Discharge Plan Prescriptions/Med Rec: Bifidobacter. Bifidum/B.Longum [Florajen Bifidoblend] 460 mg PO DAILY #30 capsule Home Medications: Home Meds Bisoprolol Fumarate [Zebeta] 5 mg PO ACBREAKFAST 11/25/15 [History] Rivaroxaban [Xarelto] 20 mg PO BEDTIME 11/25/15 [History] oxyCODONE HCl/Acetaminophen [oxyCODONE-Acetaminophen 5-325] 1 tab PO Q4H PRN 04/03 [History] DULoxetine HCl [Cymbalta] 30 mg PO BEDTIME 11/28/16 [History] Gabapentin [Neurontin] 1,800 mg PO QAM 11/28/16 [History] LORazepam 1 mg PO BID PRN 11/28/16 [History] glipiZIDE [Glipizide ER] 5 mg PO DAILY 11/28/16 [History] Gabapentin [Neurontin] 1,200 mg PO BEDTIME 11/30/16 [History] Bifidobacter. Bifidum/B.Longum [Florajen Bifidoblend] 460 mg PO DAILY #30 capsule 12/01/16 [Rx] Patient Handouts: Small Bowel Obstruction, [id number], Chronic Pain, Hypertension, [id number] Referrals: PCP,Not In Area [Primary Care Provider] - - Discharge Summary/Plan Comment DC Time >30 min.: Yes (40 min) - General Info Date of Service: 12/01/16 Admission Dx/Problem (Free Text: Admission Diagnosis/Problem Admission Diagnosis/Problem Small bowel obstruction Functional Status: Reports: pain controlled, tolerating diet, ambulating, urinating. Denies: new symptoms - Review of Systems General: Reports: No Symptoms HEENT: Reports: no symptoms Pulmonary: Reports: no symptoms Cardiovascular: Reports: No Symptoms Gastrointestinal: Reports: Abdominal pain (minimal), Flatus. Denies: Nausea, Vomiting Genitourinary: Reports: no symptoms Musculoskeletal: Reports: no symptoms Skin: Reports: no symptoms Neurological: Reports: No Symptoms Psychiatric: Reports: no symptoms - Patient Data Vitals - Most Recent: Last Vital Signs Temp 98.0 F 12/01/16 07:53 Pulse 62 12/01/16 07:53 Resp 19 12/01/16 07:53 BP 142/89 H 12/01/16 07:53 Pulse Ox 93 L 12/01/16 07:53 Weight - Most Recent: 112.808 kg I&O - Last 24 hours: Intake & Output 11/30/16 12/01/16 12/01/16 22:59 06:59 14:59 Intake Total 1820 1390 Output Total 1950 1850 Balance -130 -460 Lab Results - Last 24 hrs: Laboratory Results - last 24 hr 11/30/16 11/30/16 11/30/16 Range/Units 10:56 17:07 20:32 Sodium (136-145) mEq/L Potassium (3.5-5.1) mEq/L Chloride (98-107) mEq/L Carbon Dioxide (21-32) mEq/L Anion Gap (5-15) BUN (7-18) mg/dL Creatinine (0.7-1.3) mg/dL Est Cr Clr Drug Dosing mL/min Estimated GFR (MDRD) (>60) mL/min BUN/Creatinine Ratio (14-18) Glucose (74-106) mg/dL POC Glucose 114 H 118 H 88 (70-105) mg/dL Calcium (8.5-10.1) mg/dL Magnesium (1.8-2.4) mg/dl 12/01/16 12/01/16 12/01/16 Range/Units 06:19 06:35 10:16 Sodium 141 (136-145) mEq/L Potassium 4.0 (3.5-5.1) mEq/L Chloride 105 (98-107) mEq/L Carbon Dioxide 27 (21-32) mEq/L Anion Gap 13.0 (5-15) BUN 13 (7-18) mg/dL Creatinine 1.4 H (0.7-1.3) mg/dL Est Cr Clr Drug Dosing 63.90 mL/min Estimated GFR (MDRD) 52 (>60) mL/min BUN/Creatinine Ratio 9.3 L (14-18) Glucose 83 (74-106) mg/dL POC Glucose 82 112 H (70-105) mg/dL Calcium 9.1 (8.5-10.1) mg/dL Magnesium 2.1 (1.8-2.4) mg/dl Med Orders - Current: Current Medications Benzocaine/Menthol (Cepacol Sore Throat) 1 lozenge MUCMEM Q1H PRN PRN Reason: Sore Throat Last Admin: 11/30/16 17:04 Dose: 1 lozenge Dextrose/Water (Dextrose 50% In Water) 50 ml IVPUSH ASDIRECTED PRN PRN Reason: Hypoglycemia Diazepam (Valium) 2 mg IVPUSH Q8H PRN PRN Reason: Anxiety Last Admin: 12/01/16 02:19 Dose: 2 mg Duloxetine HCl (Cymbalta) 30 mg PO BEDTIME [facility] Last Admin: 11/30/16 20:22 Dose: 30 mg Enoxaparin Sodium (Lovenox) 120 mg SUBCUT Q12HR [facility] Last Admin: 12/01/16 08:36 Dose: 120 mg Gabapentin (Neurontin) 900 mg PO TID [facility] Last Admin: 12/01/16 08:33 Dose: 900 mg Glipizide (Glucotrol Xl) 5 mg PO DAILY [facility] Last Admin: 12/01/16 08:34 Dose: 5 mg Levofloxacin/Dextrose 750 mg/ (Premix) 150 mls @ 100 mls/hr IV Q24H [facility] Last Admin: 11/30/16 14:16 Dose: 100 mls/hr Insulin Aspart (Novolog) 0 unit SUBCUT QIDACANDBED [facility] PRN Reason: Protocol Last Admin: 12/01/16 06:21 Dose: Not Given Metoclopramide HCl (Reglan) 10 mg IVPUSH TID [facility] Last Admin: 12/01/16 08:34 Dose: 10 mg Metoprolol Succinate (Toprol Xl) 100 mg PO ACBRK [facility] Last Admin: 12/01/16 06:22 Dose: 100 mg Ondansetron HCl (Zofran) 4 mg IVPUSH Q6H PRN PRN Reason: Nausea/Vomiting Oxycodone/Acetaminophen (Percocet 325-5 Mg) 1 tab PO Q4H PRN PRN Reason: Pain Last Admin: 12/01/16 08:33 Dose: 1 tab Pantoprazole Sodium (Protonix) 40 mg PO DAILY [facility] Last Admin: 12/01/16 08:34 Dose: 40 mg Saccharomyces Boulardii (Florastor) 250 mg PO BID [facility] Last Admin: 12/01/16 08:33 Dose: 250 mg Senna/Docusate Sodium (Senna Plus) 1 tab PO BID PRN PRN Reason: Constipation Simethicone (Simethicone) 80 mg PO Q4H PRN PRN Reason: gas/bloating/abd pain Sodium Chloride (Saline Flush) 10 ml FLUSH ASDIRECTED PRN PRN Reason: Keep Vein Open Temazepam (Restoril) 30 mg PO BEDTIME PRN PRN Reason: Insomnia Last Admin: 11/30/16 20:22 Dose: 30 mg Discontinued Medications Benzocaine (Hurricaine 20% Hawkeye) 1 ml MUCMEM ONETIME ONE Stop: 11/28/16 11:34 Last Admin: 11/28/16 12:00 Dose: 1 dose Bisacodyl (Dulcolax) 10 mg RECTAL ONETIME ONE Stop: 11/30/16 10:59 Last Admin: 11/30/16 11:14 Dose: 10 mg Diazepam (Valium) 2 mg IVPUSH ONETIME ONE Stop: 11/28/16 09:57 Last Admin: 11/28/16 10:29 Dose: 2 mg Fentanyl (Sublimaze) 100 mcg IVPUSH ONETIME ONE Stop: 11/28/16 01:51 Last Admin: 11/28/16 01:56 Dose: 100 mcg Fentanyl (Sublimaze) 50 mcg IVPUSH ONETIME ONE Stop: 11/28/16 03:02 Last Admin: 11/28/16 03:11 Dose: 50 mcg Fentanyl (Sublimaze) 50 mcg IVPUSH Q1H PRN PRN Reason: Pain Last Admin: 11/28/16 07:57 Dose: 50 mcg Fentanyl (Sublimaze) 50 mcg IVPUSH Q2HR PRN PRN Reason: Pain Gabapentin (Neurontin) 600 mg PO TID [facility] Last Admin: 11/30/16 08:35 Dose: 600 mg Gabapentin (Neurontin) 1,800 mg PO QAM [facility] Gabapentin (Neurontin) 1,200 mg PO ONETIME ONE Stop: 11/30/16 11:01 Last Admin: 11/30/16 16:18 Dose: Not Given Gabapentin (Neurontin) 1,200 mg PO BEDTIME [facility] Glipizide (Glucotrol Xl) 5 mg PO DAILY [facility] Haloperidol Lactate (Haldol) 1 mg IVPUSH Q6H [facility] Last Admin: 11/28/16 15:08 Dose: Not Given Hydromorphone HCl (Dilaudid) 1 mg IVPUSH ONETIME ONE Stop: 11/28/16 00:20 Last Admin: 11/28/16 00:41 Dose: 1 mg Hydromorphone HCl (Dilaudid) 1 mg IVPUSH ONETIME ONE Stop: 11/28/16 01:00 Last Admin: 11/28/16 01:04 Dose: 1 mg Hydromorphone HCl (Dilaudid) 1 mg IVPUSH Q1H PRN PRN Reason: Abdominal Pain Last Admin: 11/28/16 08:45 Dose: 1 mg Hydromorphone HCl (Dilaudid) 2 mg IVPUSH Q1H PRN PRN Reason: Abdominal Pain Last Admin: 11/30/16 04:09 Dose: 2 mg Sodium Chloride (Normal Saline) 1,000 mls @ 1,000 mls/hr IV .BOLUS STA Stop: 11/28/16 01:16 Last Admin: 11/28/16 00:38 Dose: 1,000 mls/hr Sodium Chloride (Normal Saline) 1,000 mls @ 150 mls/hr IV ASDIRECTED [facility] Last Admin: 11/28/16 01:56 Dose: 150 mls/hr Sodium Chloride (Normal Saline) 1,000 mls @ 200 mls/hr IV ASDIRECTED [facility] Last Admin: 11/29/16 15:24 Dose: 200 mls/hr Dextrose/Sodium Chloride (Dextrose 5%-Normal Saline) 1,000 mls @ 70 mls/hr IV ASDIRECTED [facility] Last Admin: 11/30/16 10:43 Dose: 70 mls/hr Magnesium Sulfate 2 gm/ Premix 50 mls @ 25 mls/hr IV ONETIME ONE Stop: 11/30/16 14:57 Last Admin: 11/30/16 14:17 Dose: 25 mls/hr Magnesium Sulfate 2 gm/ Premix 50 mls @ 25 mls/hr IV ONETIME ONE Stop: 11/30/16 21:12 Last Admin: 11/30/16 20:20 Dose: 25 mls/hr Lidocaine HCl (Xylocaine 2% Viscous) 15 ml PO ONETIME ONE Stop: 11/28/16 11:36 Last Admin: 11/28/16 12:00 Dose: 15 ml Non-Formulary Medication (Bisoprolol Fumarate [Zebeta]) 5 mg PO ACBREAKFAST [facility] Ondansetron HCl (Zofran) 4 mg IVPUSH ONETIME ONE Stop: 11/28/16 00:18 Last Admin: 11/28/16 00:39 Dose: 4 mg Pantoprazole Sodium (Protonix Iv) 40 mg IVPUSH Q12H [facility] Last Admin: 11/30/16 04:23 Dose: 40 mg Sodium Chloride (Saline Flush) 10 ml FLUSH ASDIRECTED PRN PRN Reason: Keep Vein Open Last Admin: 11/28/16 00:39 Dose: 10 ml - Exam Quality Assessment: Reports: DVT prophylaxis General: Reports: alert, oriented, cooperative, no acute distress HEENT: Reports: Pupils equal, Pupils reactive, EOMI, Mucous membr. moist/pink Neck: Reports: supple Lungs: Reports: Clear to auscultation, Normal respiratory effort Cardiovascular: Reports: Regular Rate, Regular Rhythm Abdomen: Reports: bowel sounds present, soft, no tenderness, no distension. Denies: rigidity, rebound, guarding, distension (Male) Exam: Deferred Rectal (Males) Exam: Deferred Extremities: Reports: no edema Neurological: Reports: no new focal deficit Psy/Mental Status: Reports: alert, normal affect, normal mood *Q Meaningful Use (DIS) - VTE *Q VTE Criteria *Q: - Stroke *Q Stroke Criteria *Q: - AMI *Q AMI Criteria *Q: <Coreen Merchant Otto - Last Filed: 12/14/16 18:56> Discharge Summary - Hospital Course Free Text/Narrative:: Agree with above, follow as scheduled. - Discharge Diagnosis/Problem(s) (1) Small bowel obstruction SNOMED Code(s): 783106080 ICD Code: K56.69 - OTHER INTESTINAL OBSTRUCTION Status: Acute Priority: High (2) Neurogenic pain SNOMED Code(s): 487460073 ICD Code: M79.2 - NEURALGIA AND NEURITIS, UNSPECIFIED Status: Acute Priority: High - Patient Summary/Data Consults: Consultations 11/28/16 03:08 Consult to Physician [CONS] Urgent 11/28/16 10:08 Consult to Physician [CONS] Routine - Patient Data Vitals - Most Recent: Last Vital Signs Temp 36.7 C 12/01/16 07:53 Pulse 62 12/01/16 07:53 Resp 19 12/01/16 07:53 BP 142/89 H 12/01/16 07:53 Pulse Ox 93 L 12/01/16 07:53 Med Orders - Current: Current Medications Discontinued Medications Benzocaine (Hurricaine 20% Hawkeye) 1 ml MUCMEM ONETIME ONE Stop: 11/28/16 11:34 Last Admin: 11/28/16 12:00 Dose: 1 dose Benzocaine/Menthol (Cepacol Sore Throat) 1 lozenge MUCMEM Q1H PRN PRN Reason: Sore Throat Last Admin: 11/30/16 17:04 Dose: 1 lozenge Bisacodyl (Dulcolax) 10 mg RECTAL ONETIME ONE Stop: 11/30/16 10:59 Last Admin: 11/30/16 11:14 Dose: 10 mg Dextrose/Water (Dextrose 50% In Water) 50 ml IVPUSH ASDIRECTED PRN PRN Reason: Hypoglycemia Diazepam (Valium) 2 mg IVPUSH ONETIME ONE Stop: 11/28/16 09:57 Last Admin: 11/28/16 10:29 Dose: 2 mg Diazepam (Valium) 2 mg IVPUSH Q8H PRN PRN Reason: Anxiety Last Admin: 12/01/16 02:19 Dose: 2 mg Duloxetine HCl (Cymbalta) 30 mg PO BEDTIME [facility] Last Admin: 11/30/16 20:22 Dose: 30 mg Enoxaparin Sodium (Lovenox) 120 mg SUBCUT Q12HR [facility] Last Admin: 12/01/16 08:36 Dose: 120 mg Fentanyl (Sublimaze) 100 mcg IVPUSH ONETIME ONE Stop: 11/28/16 01:51 Last Admin: 11/28/16 01:56 Dose: 100 mcg Fentanyl (Sublimaze) 50 mcg IVPUSH ONETIME ONE Stop: 11/28/16 03:02 Last Admin: 11/28/16 03:11 Dose: 50 mcg Fentanyl (Sublimaze) 50 mcg IVPUSH Q1H PRN PRN Reason: Pain Last Admin: 11/28/16 07:57 Dose: 50 mcg Fentanyl (Sublimaze) 50 mcg IVPUSH Q2HR PRN PRN Reason: Pain Gabapentin (Neurontin) 600 mg PO TID [facility] Last Admin: 11/30/16 08:35 Dose: 600 mg Gabapentin (Neurontin) 1,800 mg PO QAM [facility] Gabapentin (Neurontin) 1,200 mg PO ONETIME ONE Stop: 11/30/16 11:01 Last Admin: 11/30/16 16:18 Dose: Not Given Gabapentin (Neurontin) 1,200 mg PO BEDTIME [facility] Gabapentin (Neurontin) 900 mg PO TID [facility] Last Admin: 12/01/16 08:33 Dose: 900 mg Glipizide (Glucotrol Xl) 5 mg PO DAILY [facility] Last Admin: 12/01/16 08:34 Dose: 5 mg Glipizide (Glucotrol Xl) 5 mg PO DAILY [facility] Haloperidol Lactate (Haldol) 1 mg IVPUSH Q6H [facility] Last Admin: 11/28/16 15:08 Dose: Not Given Hydromorphone HCl (Dilaudid) 1 mg IVPUSH ONETIME ONE Stop: 11/28/16 00:20 Last Admin: 11/28/16 00:41 Dose: 1 mg Hydromorphone HCl (Dilaudid) 1 mg IVPUSH ONETIME ONE Stop: 11/28/16 01:00 Last Admin: 11/28/16 01:04 Dose: 1 mg Hydromorphone HCl (Dilaudid) 1 mg IVPUSH Q1H PRN PRN Reason: Abdominal Pain Last Admin: 11/28/16 08:45 Dose: 1 mg Hydromorphone HCl (Dilaudid) 2 mg IVPUSH Q1H PRN PRN Reason: Abdominal Pain Last Admin: 11/30/16 04:09 Dose: 2 mg Sodium Chloride (Normal Saline) 1,000 mls @ 1,000 mls/hr IV .BOLUS STA Stop: 11/28/16 01:16 Last Admin: 11/28/16 00:38 Dose: 1,000 mls/hr Sodium Chloride (Normal Saline) 1,000 mls @ 150 mls/hr IV ASDIRECTED [facility] Last Admin: 11/28/16 01:56 Dose: 150 mls/hr Sodium Chloride (Normal Saline) 1,000 mls @ 200 mls/hr IV ASDIRECTED [facility] Last Admin: 11/29/16 15:24 Dose: 200 mls/hr Dextrose/Sodium Chloride (Dextrose 5%-Normal Saline) 1,000 mls @ 70 mls/hr IV ASDIRECTED [facility] Last Admin: 11/30/16 10:43 Dose: 70 mls/hr Magnesium Sulfate 2 gm/ Premix 50 mls @ 25 mls/hr IV ONETIME ONE Stop: 11/30/16 14:57 Last Admin: 11/30/16 14:17 Dose: 25 mls/hr Levofloxacin/Dextrose 750 mg/ (Premix) 150 mls @ 100 mls/hr IV Q24H [facility] Last Admin: 11/30/16 14:16 Dose: 100 mls/hr Magnesium Sulfate 2 gm/ Premix 50 mls @ 25 mls/hr IV ONETIME ONE Stop: 11/30/16 21:12 Last Admin: 11/30/16 20:20 Dose: 25 mls/hr Insulin Aspart (Novolog) 0 unit SUBCUT QIDACANDBED [facility] PRN Reason: Protocol Last Admin: 12/01/16 12:08 Dose: Not Given Lidocaine HCl (Xylocaine 2% Viscous) 15 ml PO ONETIME ONE Stop: 11/28/16 11:36 Last Admin: 11/28/16 12:00 Dose: 15 ml Metoclopramide HCl (Reglan) 10 mg IVPUSH TID [facility] Last Admin: 12/01/16 08:34 Dose: 10 mg Metoprolol Succinate (Toprol Xl) 100 mg PO ACBRK [facility] Last Admin: 12/01/16 06:22 Dose: 100 mg Non-Formulary Medication (Bisoprolol Fumarate [Zebeta]) 5 mg PO ACBREAKFAST [facility] Ondansetron HCl (Zofran) 4 mg IVPUSH ONETIME ONE Stop: 11/28/16 00:18 Last Admin: 11/28/16 00:39 Dose: 4 mg Ondansetron HCl (Zofran) 4 mg IVPUSH Q6H PRN PRN Reason: Nausea/Vomiting Oxycodone/Acetaminophen (Percocet 325-5 Mg) 1 tab PO Q4H PRN PRN Reason: Pain Last Admin: 12/01/16 08:33 Dose: 1 tab Pantoprazole Sodium (Protonix Iv) 40 mg IVPUSH Q12H [facility] Last Admin: 11/30/16 04:23 Dose: 40 mg Pantoprazole Sodium (Protonix) 40 mg PO DAILY [facility] Last Admin: 12/01/16 08:34 Dose: 40 mg Saccharomyces Boulardii (Florastor) 250 mg PO BID [facility] Last Admin: 12/01/16 08:33 Dose: 250 mg Senna/Docusate Sodium (Senna Plus) 1 tab PO BID PRN PRN Reason: Constipation Simethicone (Simethicone) 80 mg PO Q4H PRN PRN Reason: gas/bloating/abd pain Sodium Chloride (Saline Flush) 10 ml FLUSH ASDIRECTED PRN PRN Reason: Keep Vein Open Last Admin: 11/28/16 00:39 Dose: 10 ml Sodium Chloride (Saline Flush) 10 ml FLUSH ASDIRECTED PRN PRN Reason: Keep Vein Open Temazepam (Restoril) 30 mg PO BEDTIME PRN PRN Reason: Insomnia Last Admin: 11/30/16 20:22 Dose: 30 mg *Q Meaningful Use (DIS) - VTE *Q VTE Criteria *Q: - Stroke *Q Stroke Criteria *Q: - AMI *Q AMI Criteria *Q:
--- NOTE | 2016-12-01 16:20 | CONS ---
CONSULTING PHYSICIAN: Jimbo Bagley MD DATE OF CONSULTATION: 12/01/2016 This is a 60-minute inpatient clinical event. IDENTIFICATION: The patient is a 56-year-old male who was admitted to the inpatient Med/Surg Unit at [facility] in [place], [place], secondary to partial small bowel obstruction. He is seen for psychiatric assessment per primary medical team's request. CHIEF COMPLAINT: "I am not sure what it is all about. I ate a pizza or something, and I was all plugged up." HISTORY OF PRESENT ILLNESS: The patient is a 56-year-old male who reports that he was admitted secondary to a partial small bowel obstruction. He is expressing confusion and consternation as to why he is being interviewed at this point in time, particularly as it is so early in the morning and also because he does not feel he has any psychiatric issues. He answers a few questions, but then essentially refuses the rest of the interview stating "I don't have any problems, I don't know what this is about, and you need to read my papers." MEDICATIONS: Medications at the time of presentation coming from home; 1. Ativan 1 mg b.i.d. p.r.n. 2. Propranolol. 3. Percocet 1 tab q.4 hours p.r.n. 4. Neurontin 1800 mg q.a.m. and 1200 mg at bedtime. 5. Celebrex. ALLERGIES: No known drug allergies. PAST MEDICAL HISTORY: Currently being treated for a partial small bowel obstruction. REVIEW OF SYSTEMS: Aside from GI, all other major organ systems are negative at this point in time for acute difficulties or complications. FAMILY PSYCHIATRIC AND CD HISTORY: No information is provided by the patient. PAST PSYCHIATRIC AND CD HISTORY: The patient is refusing to answer. SOCIAL HISTORY: The patient states he has his own [employer] company, and he lives in [place], [place], and he was in [place] when he got sick and that is why he is in the hospital, but again is refusing to answer any other questions. MENTAL STATUS EXAM: The patient is a 56-year-old white male in no apparent distress. Speech is of regular rate and rhythm. The patient is cognitively oriented. Psychomotor activity is within normal limits. There is no abnormal motor movements or tics observed. Gait is normal. Station is steady. This patient does get up and move around during the course of the interview. Mood is angry and annoyed. Affect is uncooperative. There is no behavioral or stated evidence of acute suicidal or homicidal ideation or acute psychotic, delusional, or paranoid symptoms. Thought processes appear organized. There is no acute manic symptoms or loose associations evident. Judgment and insight appear unimpaired at this point in time. Motivation for help is poor. Vital signs are stable at the time of interview. IMPRESSION: [place] I: No diagnosis at this time. [place] II: Rule out personality disorder, not otherwise specified, with prominent cluster B traits. [place] III: Partial small bowel obstruction, currently being treated on this hospitalization. [place] IV: Moderate to severe. Madison V: 60. PLAN: 1. Continue current treatment plan as prescribed by the patient's primary medical treatment team. 2. It does not appear that the patient desires any psychiatric treatment at this time and on the surface, it does not appear that the patient's poor disposition, that any type of psychiatric resources need to be dedicated through the care of this patient during his hospital stay. 3. We will continue follow up with the patient on an as-needed basis while he remains on the inpatient medical unit. 4. We will follow up with the patient sooner if any complications in the interim. 5. Crisis plan is in place. YONATHAN /[id number]
== END 2016-12-01 13:20 | disposition home or self-care (01) | DRG 389 ==
LOC: JD.ED 23:51 → JD.MS 11-28 03:03
PROVIDERS: ADMIT Internal Medicine Cardiovascular Disease; ATTEND Internal Medicine Cardiovascular Disease
PROC: 0D9670Z Drainage of Stomach with Drainage Device, Via Natural or Artificial Opening (ICD-10-PCS; principal; 2016-11-28)
DX: K56.69 Other intestinal obstruction (principal); N39.0 Urinary tract infection, site not specified; I25.10 Atherosclerotic heart disease of native coronary artery without angina pectoris; I25.2 Old myocardial infarction; I10 Essential (primary) hypertension; E78.00 Pure hypercholesterolemia, unspecified; Z95.5 Presence of coronary angioplasty implant and graft; E11.42 Type 2 diabetes mellitus with diabetic polyneuropathy; Z85.51 Personal history of malignant neoplasm of bladder; Z93.6 Other artificial openings of urinary tract status; Z79.01 Long term (current) use of anticoagulants; Z79.82 Long term (current) use of aspirin; Z79.899 Other long term (current) drug therapy; I48.91 Unspecified atrial fibrillation; Z86.718 Personal history of other venous thrombosis and embolism; K21.9 Gastro-esophageal reflux disease without esophagitis; R32 Unspecified urinary incontinence; F41.9 Anxiety disorder, unspecified; M79.2 Neuralgia and neuritis, unspecified; I73.9 Peripheral vascular disease, unspecified; E78.5 Hyperlipidemia, unspecified; Z86.59 Personal history of other mental and behavioral disorders; Z90.6 Acquired absence of other parts of urinary tract
CPT/HCPCS: 36415; 71010; 71010-26; 74176; 74176-26; 80048; 80053; 81001; 82962; 83690; 83735; 85025; 85027; 86140; 87086; 94760; 94761; 96361; 96374; 96375; 96376; 99232; 99239; 99284; 99285-25; A9270-GY; C9113; J1170; J1630; J1650; J1956; J2405; J2765; J3010; J3360; J3475; J7040; J7042; J7050